=== PATIENT | male | born 1940 | race Caucasian/White ===

== ENCOUNTER 2024-12-04 08:29 | Outpatient (CLI) | payer MEDICARE, OTHER | END 2024-12-04 23:59 | disposition home or self-care (01) | LOC: VAS 08:29 | PROVIDERS: ATTEND Internal Medicine Critical Care Medicine | DX: N13.30 Unspecified hydronephrosis (principal); N18.4 Chronic kidney disease, stage 4 (severe) | CPT/HCPCS: 76770 ==

== ENCOUNTER 2024-12-04 11:50 | Emergency (ER) | payer MEDICARE, OTHER ==
[~2024-12-04] VITALS: Ht 177.8 cm; Wt 104.1 kg
[2024-12-04 11:54] VITALS: BP 176/79; PULSE 86; RESP 18; O2SAT 98
[2024-12-04 13:19] VITALS: TEMP 98.2
== END 2024-12-04 13:20 | disposition home or self-care (01) ==
LOC: ER 11:51
DX: R33.9 Retention of urine, unspecified (principal)
CPT/HCPCS: 51702; 51798; 99284; A4314; A4358; 76770

== ENCOUNTER 2024-12-16 12:53 | Inpatient (IN) | payer MEDICARE, OTHER ==
[~2024-12-16] VITALS: Ht 177.8 cm; Wt 101.0 kg
--- NOTE | 2024-12-16 16:27 | Physician Documentation ---
History of Present Illness ~ Chief Complaint: Catheter Problem Stated Complaint: CATHETER ISSUES Time Seen by MD: 15:49 HPI He was you year old male presents to the ED with a complaint of bloody urine. According to him he has had a Parra catheter placed proximally two weeks ago in his developed blood in his urine the last 2-3 days. Weeks ago patient developed urinary retention which required the initiation of the Parra catheter. This is likely secondary to the patient's chronic kidney disease. Day patient states he feels weak after losing so much blood through his Parra. Patient describes it as rafael blood. Day of Onset: Dec 16, 2024 Medication Reconciliation Allergies: Coded Allergies: No Known Allergies (Unverified , 12/16/24) Review of Systems All Other Systems at this time: Reviewed and Negative ROS As stated above in the HPI, otherwise all systems are reviewed and negative. Physical Exam Vital Signs: Temperature: 98.1, Heart Rate: 84, Respiratory Rate: 16, BP: 142/75, Pulse Oximetry: 99, Weight: 101.000 Oxygen Flow Rate: 0 Physical Exam Respiratory: Lungs clear, no respiratory distress. Cardiovascular: Regular rate and rhythm, no murmurs. Neurologic: Oriented x4. Psychiatric: Normal mood and affect. Skin: Normal color, warm and dry. No edema, no ecchymosis. Progress Results/Orders Results/Orders Orders - CHILO JACOME DOORPERSON Bladder Scan (12/16/24 ) Irrigation Of Bladder (12/16/24 ) * Continuous Bladder Irrigatio (12/16/24 17:24) Page Hospitalist (12/16/24 ) Ct Abdomen Pelvis (12/16/24 18:21) Completed Orders - CHILO JACOME DOORPERSON Cbc/Diff (12/16/24 16:57) BMP (12/16/24 16:57) Ct Abdomen Pelvis (12/16/24 18:21) Vital Signs 12/16/24 12/16/24 12/16/24 12:56 16:55 16:55 Temp 98.1 Pulse 84 89 Resp 16 18 18 B/P (MAP) 142/75 149/83 (105) Pulse Ox 99 96 O2 Flow Rate 0 0 Laboratory Tests Test 12/16/24 17:09 White Blood Count 6.4 Red Blood Count 3.26 L Hemoglobin 10.9 L Hematocrit 32.4 L Mean Corpuscular Volume 99.3 H Mean Corpuscular Hemoglobin 33.4 H Mean Corpuscular Hemoglobin Concent 33.6 Red Cell Distribution Width 14.9 H Platelet Count 178 Mean Platelet Volume 9.0 Neutrophils (%) (Auto) 68.8 Lymphocytes (%) (Auto) 19.2 L Monocytes (%) (Auto) 7.7 Eosinophils (%) (Auto) 3.7 Basophils (%) (Auto) 0.6 Neutrophils # (Auto) 4.4 Lymphocytes # (Auto) 1.2 Monocytes # (Auto) 0.5 Eosinophils # (Auto) 0.2 Basophils # (Auto) 0.0 CBC Comment Sodium Level 132 L Potassium Level 4.7 Chloride Level 99 Carbon Dioxide Level 19.3 L Anion Gap 14 Blood Urea Nitrogen 65 H Creatinine 3.17 H Estimated GFR/1.73 m2 19 BUN/Creatinine Ratio 20.5 H Glucose Level 131 H Calcium Level 8.9 Albumin 3.5 Chemistry Comments Medical Decision Making Findings This patient is nephrologists is Dr. Anderson who I consulted with. Explained to him the patient's current status and he indicated that he was nothing emergent that he needs to do however consulting with Urology is indicated .certainly, the patient needs to be admitted to the hospital. Urinary Diff Dx:Considerations: Include: AAA, Aortic dissection, Appendicitis, Appendicitis train, Bowel obstruction, Bladder outlet obstruc., Cholelithiasis, Choleangitis, Cholecystitis, DJD, Epididymitis, Hepatitis, HNP, Impaction, Musculoskeletal pain, Pancreatitis, Postoperative Comp., Prostatitis, Pyelonephritis, Renal failure, Renal infarction, Strain, Urolithiasis, Urinary Obstruction, Urethritis, Urinary retention, UTI, Other Departure Disposition: ADMITTED INPATIENT Admitted to Inpatient Unit: to hospitalist Impression: Primary Impression: Urine retention Additional Impression: Hematuria Referrals: NO PRIMARY CARE PROVIDER (PCP) Signature Scribe Signature: g Attestation: The note accurately reflects work and decisions made by me.Chilo Mitchell NP 12/16/24 18:30 CHILO JACOME NP Dec 16, 2024 16:27
[2024-12-16 17:24] LABS: ALBUMIN 3.5 G/DL (3.4-5.0); ANION GAP 14 (8-16); BLOOD UREA NITROGEN 65 MG/DL (7-18); BUN/CREATININE RATIO 20.5 (10.0-20.0); CALCIUM 8.9 MG/DL (8.5-10.1); CHLORIDE 99 MMOL/L (99-107); CREATININE 3.17 MG/DL (0.60-1.10); GLUCOSE 131 MG/DL (70-104); POTASSIUM 4.7 MMOL/L (3.5-5.1); SODIUM 132 MMOL/L (135-145); TOTAL CARBON DIOXIDE 19.3 MMOL/L (24-32); eCRCL 19 ML/MIN; eGFR 19 ML/MIN
[2024-12-16 17:38] LABS: BASOPHILS % (AUTO) 0.6 % (0-1); EOSINOPHILS # (AUTO) 0.2 X10'3 (0-0.9); EOSINOPHILS % (AUTO) 3.7 % (0-6); HEMATOCRIT 32.4 % (42.0-52.0); HEMOGLOBIN 10.9 g/dl (14.0-17.9); LYMPHOCYTES # (AUTO) 1.2 X10'3 (1.1-4.8); LYMPHOCYTES % (AUTO) 19.2 % (21-51); MEAN CORPUSCULAR HEMOGLOBIN 33.4 PG (27.0-31.0); MEAN CORPUSCULAR HGB CONC 33.6 g/dL (33.0-36.5); MEAN CORPUSCULAR VOLUME 99.3 FL (78-98); MONOCYTES # (AUTO) 0.5 X10'3 (0-0.9); MONOCYTES % (AUTO) 7.7 % (2-12); NEUTROPHILS # (AUTO) 4.4 X10'3 (1.8-7.7); NEUTROPHILS % (AUTO) 68.8 % (42-75); PLATELET COUNT 178 X10'3 (140-440); RED BLOOD COUNT 3.26 X10'6 (4.70-6.10); RED CELL DISTRIBUTION WIDTH 14.9 % (11.5-14.5); WHITE BLOOD COUNT 6.4 X10'3 (4.5-11.0)
[2024-12-16] MEDS ORDERED: HYDROcodone/acetaminophen 10/325mg tab PO PRN (18:25)
[2024-12-16] MEDS ORDERED: magnesium Cl slow-release 64mg tablet PO PRN (18:25)
[2024-12-16] MEDS ORDERED: magnesium hydroxide 30ml (MOM) UD suspension PO PRN (18:25)
[2024-12-16] MEDS ORDERED: acetaminophen 325mg tablet PO PRN ×2 (18:25)
[2024-12-16] MEDS ORDERED: morphine 2 MG/ML inj. syringe IV PRN ×2 (18:25)
[2024-12-16] MEDS ORDERED: potassium Cl 40MEQ/1/2NS 520ml 520 ML IV PRN (18:25)
[2024-12-16] MEDS ORDERED: magnesium sulf-water 4G/100mL 100 ML IV PRN (18:25)
[2024-12-16] MEDS ORDERED: ondansetron/PF 4mg/2ml inj IV PRN (18:25)
[2024-12-16] MEDS ORDERED: potassium Cl 20 mEq SR tablet PO PRN ×2 (18:25)
[2024-12-16] MEDS ORDERED: magnesium sulf-water 2g/50mL 50 ML IV PRN (18:25)
--- NOTE | 2024-12-16 18:38 | HISTORY AND PHYSICAL ---
History & Physical Providers to CC ~ chief complaint gross hematuria History of Present Illness Reason for Admit\Complaint: As above History of Present Illness This is an 84 year old male , with history of multiple medical problems including chronic kidney disease, colon cancer treated with surgery, colostomy status now, CHF ejection fraction unknown, bilateral hydronephrosis moderate, anemia hemoglobin 10.9, acute renal failure, Parra catheter malfunction, presented today to emergency department chief complaint gross hematuria associated with Parra catheter malfunction; in addition patient presents to the ED with a complaint of bloody urine. According to him he has had a Parra catheter placed proximally two weeks ago in his developed blood in his urine the last 2-3 days.Weeks ago patient developed urinary retention which required the initiation of the Parra catheter. This is likely secondary to the patient's chronic kidney disease.patient states he feels weak after losing so much blood through his Parra. Patient describes it as rfaael blood. Emergency department he was evaluated by medical provider was diagnosed with gross hematuria, malfunction normal Parra catheter, hyponatremia, acute renal failure, hydronephrosis, and decision was made to admit patient for further evaluation and treatment. No additional complaint or concern. Allergies: Coded Allergies: No Known Allergies (Unverified , 12/16/24) Active prescriptions Reviewed reconciled Home Medications Pending Past Medical History Past Medical History As in HPI Past Surgical History Surgical History Comment As in HPI Past Social History Social History Comment Deny illicit drug abuse tobacco alcohol use live with the family good social support Health Maintenance Health Maintenance Noncontributory ROS ROS Constitutional : no fever , no chills, or weakness. No diaphoresis. Allergic/Immunologic, no lymphadenopathy, no hives, no skin eruptions. Eyes, no recent visual changes, no eye pain, no photophobia. Ears, nose, mouth, throat, no sore throat, no nosebleed, no ear pain. Cardiovascular, no palpitations, skipped beats, chest pain, no peripheral edema, Respiratory, no dyspnea, orthopnea, cough, hemoptysis, chest wall pain. Gastrointestinal, no abdominal pain, nausea, vomiting, constipation or diarrhea. : no dysuria, positive for gross hematuria, no pelvic pain, urethral d/c. Endocrine, no polyuria, polydipsia, recent unintentional weight gain or loss. Hematologic/Lymphatic, no petechiae, no enlarged lymph nodes, no bone pain. Integumentary, no rash, no skin lesions, Musculoskeletal, no muscle aches, or pain, no muscle cramps, no recent change in gait Neurological, no dizziness, no headache, no syncope, no paresthesia. Psychiatric, no delusions, visual hallucinations, or hearing hallucinations. ROS - in rest is as in HPI. Exam Vitals: Vital Signs Date Time Temp Pulse Resp B/P (MAP) Pulse Ox O2 Delivery O2 Flow Rate FiO2 12/16/24 16:55 89 18 149/83 (105) 96 0 12/16/24 12:56 98.1 Vital signs, stable ,afebrile. Pulse Oximetry reflects adequate oxygenation. BMI is 31, weight 101 kg General: well developed, well nourished. Awake , alert, and oriented x4, resting comfortably in the bed, in no acute distress . Skin: Warm, dry, no pallor, no rash or petechiae. HEENT: Atraumatic, normocephalic, EOMI, anicteric sclera B; pink conjunctiva; PERRLA, normal oropharynx, moist oral and nasal mucosa. Tympanic membrane , nose , throat clear. Neck: Trachea midline. Supple, full range of motion, no JVD, bruit , hepatojugular reflex , lymphadenopathy or masses, or other lesions Cardiac: Regular rhythm, regular rate no murmurs, rubs, or gallops. Normal S1 and S2, no S3 noticed. PMI is normal. Respiratory: Equal breath sounds bilaterally, no tachypnea; lungs clear to auscultation bilaterally, no wheezing ,rub or rales, or crackles. Chest wall is symmetric and without deformity. No signs of trauma. Chest wall is nontender. No signs of respiratory distress. Resonance is normal upon percussion bilaterally. Gastrointestinal: Abdomen symmetric, non-distended, soft, non-tender, normal bowel sounds x4 quadrant, normoactive, no hepatosplenomegaly , no masses , no bruit, no flank pain bilaterally. No voluntary guarding, rebound, or rigidity. No tenderness to percussion. No pulsatile masses. Equal femoral pulses. No Gaytan's sign or McBurney point tenderness. Back; no CVA tenderness bilaterally, no deformities. Neck and back are without deformity as well. No tenderness noted on palpation of the spinous processes. Spinous processes are midline. Cervical, thoracic, and lumbar paraspinal muscles are not tender and are without spasm. : normal external genitalia, without lesions, swelling, masses or tenderness. Parra catheter in place rafael blood in the bag Musculoskeletal: Extremities, normal range of motion, non-tender, muscle strength 5/5 x 4. Negative Homans signs bilaterally on lower extremity. Distal pulses full symmetrical, no clubbing, cyanosis , edema. Neurological: Speech is clear, alert, and oriented x 4. No motor or sensory deficit, deep tendon reflexes normal, cerebellar intact. Cranial nerves II-XII intact. Psych: Alert and or appropriate, normal affect. Vascular: Good distal pulses, which are equal x4; capillary refill less than 2 seconds. Lymphatic, no lymphadenopathy. Diagnostic Data Last Recorded Lab Results: 12/16/24170812/16/24 170 Advance Care Planning Advanced Care plannin - 30 Minutes Additional Plan Assessment Chronic kidney disease Acute renal failure Bilateral hydronephrosis, moderate Gross hematuria Anemia hemoglobin 10.9 Hyponatremia Status post colon cancer surgery, colostomy status now Generalized weakness Chronic CHF ejection fraction unknown Plan Continuous bladder irrigation May need Urology doctor evaluation May need Nephrology doctor evaluation Correct electrolytes PT evaluation and treatment Additional lab work pending Echocardiography pending I reconciled home medications DVT gastropathy prophylaxis addressed Sepsis Screening Reassessment Date: Dec 16, 2024 Date of Service: Dec 16, 2024 Billing Provider: LUIS ALFREDO BULL MD Common Visit Codes: 68195-[id number] INP/OBS CARE (HIGH) Secondary Visit Codes: [id number] CARE PLAN ADDL 30MIN LUIS ALFREDO BULL MD Dec 16, 2024 18:38
--- NOTE | 2024-12-16 18:48 | RADIOLOGY REPORT ---
Exam: CT CT ABDOMEN PELVIS History: hematuria Comparison Study: None available at time of dictation. TECHNIQUE: Multidetector CT of the abdomen was performed from lung bases to pubic symphysis. Imaging was performed without IV contrast. Axial, coronal and sagittal multiplanar reformats were obtained fr om the axial data set by the technologist. Radiation Dose Information: CT Dose: CTDI volume is 28.75 mGy. Dose-length product is 1638.07 mGy*cm FINDINGS: Evaluation of solid organs is limited due to lack of intravenous contrast use. Findings: Lung Bases: No acute or significant lung base finding. Normal heart size. No pleural or pericardial effusion. Liver: The liver is normal in size. No focal lesions. Gallbladder and Biliary Tree: Small gallstones. Spleen: Unremarkable Pancreas: The pancreas is grossly normal in appearance. Adrenal Glands: Unremarkable Kidneys: Kidneys are grossly normal without calculi. Possible Mild right hydronephrosis. Bladder: Parra catheter in the bladder. Density of urine in the bladder is 26 may represent hemorrha gic urine. Bowel: The stomach is grossly normal in appearance. Small bowel and colon are normal in caliber and d istribution. The appendix is not visualized; however, no secondary findings of acute appendicitis id entified. Ascites: Absent Lymphadenopathy: No mesenteric, retroperitoneal or periportal lymphadenopathy. Abdominal Wall and Mesentery: Colostomy stoma lower left anterior abdominal wall. No findings to sugg est obstruction. Vasculature: The visualized abdominal aorta is normal in size and caliber. Evaluation of abdominal a nd pelvic vessels is limited due to lack of intravenous contrast. Pelvic Organs: Unremarkable Musculoskeletal: No aggressive focal bony lesions, acute fractures or dislocation. Soft tissues: Unremarkable IMPRESSION: 1. No nephrolithiasis or hydronephrosis. 2. Parra catheter in the bladder. 3. Tissue density of the urine appears to be 26 which may represent blood in the urine. 4. 8-9 mm calcification possibly in the distal right ureter. (coronal reconstructions ( series 601 im age 63 ; series 602 image 65; series 2 image 63) 5. Determination of wall thickness is not possible since the contents of the bladder obscure detail o f the wall. HS:Y Radiation optimization: All CT scans at this facility use at least one of these dose optimization kurt hniques: automated exposure control mA and/or kV adjustment per patient size (includes targeted exam s where dose is matched to clinical indication) or iterative reconstruction.
[2024-12-16 19:10] LABS: APTT 27 SECONDS (22-32); PROTHROMBIN TIME 10.3 SECONDS (9.0-12.0)
[2024-12-16 19:12] LABS: HEMOGLOBIN A1C 6.2 % (4.5-6.2)
[2024-12-16 19:18] LABS: MAGNESIUM 1.8 MG/DL (1.5-2.4); PHOSPHORUS 3.9 MG/DL (2.3-4.5); PRO BRAIN NATRIURETIC PEPTIDE 175 PG/ML (0-450)
[2024-12-16 19:26] LABS: OSMOLALITY 295 MOSM/K (280-300)
[2024-12-16] MEDS: K and/or MAG REPLACEMENT MC SCH (20:00)
[2024-12-16] MEDS: normal saline 1000ml 1,000 ML IV SCH (20:32)
[2024-12-16] MEDS: docusate sod 100mg capsule PO SCH (20:32)
[2024-12-16] MEDS ORDERED: temazepam 15mg capsule PO PRN (21:00)
[2024-12-16] MEDS ORDERED: DILT240T10 PO (22:21)
[2024-12-16] MEDS ORDERED: TAMS-55 (22:21)
[2024-12-16] MEDS ORDERED: LISI40TA13 PO (22:21)
[2024-12-16] MEDS ORDERED: DILT-35 PO (22:21)
[2024-12-16] MEDS ORDERED: DAPA10TA PO (22:21)
[2024-12-16] MEDS ORDERED: ATOR40TA72 PO (22:21)
[2024-12-16] MEDS ORDERED: FAMO20TA8 PO (22:21)
[2024-12-16 23:00] VITALS: BP 136/70; PULSE 71; RESP 14; TEMP 98.4; O2SAT 100
[2024-12-16 23:17] LABS: SODIUM,URINE RANDOM 33 MEQ/L
[2024-12-16 23:19] LABS: CLARITY,URINE BLOODY (Clear); COLOR,URINE RED (Yellow); UA COLLECTION TYPE NON-SPECIFIED
[2024-12-16 23:22] LABS: BACTERIA,URINE 1+ /HPF (Neg); RBC,URINE 50-100 /HPF (0-2); SQUAMOUS EPITHELIAL CELL,UR FEW /LPF (FEW)
[2024-12-16 23:23] LABS: WBC CLUMPS,URINE MODERATE /HPF (NEGATIVE)
[2024-12-16 23:25] LABS: OSMOLALITY UA 189 MOSM/K (50-1400)
[2024-12-17 01:00] LABS: BASOPHILS # (AUTO) 0.1 X10'3 (0-0.2); BASOPHILS % (AUTO) 0.9 % (0-1); EOSINOPHILS # (AUTO) 0.4 X10'3 (0-0.9); EOSINOPHILS % (AUTO) 6.6 % (0-6); HEMATOCRIT 29.3 % (42.0-52.0); HEMOGLOBIN 9.9 g/dl (14.0-17.9); LYMPHOCYTES # (AUTO) 1.3 X10'3 (1.1-4.8); LYMPHOCYTES % (AUTO) 22.3 % (21-51); MEAN CORPUSCULAR HEMOGLOBIN 33.5 PG (27.0-31.0); MEAN CORPUSCULAR HGB CONC 33.6 g/dL (33.0-36.5); MEAN CORPUSCULAR VOLUME 99.8 FL (78-98); MEAN PLATELET VOLUME 8.6 FL (7.4-10.4); MONOCYTES # (AUTO) 0.6 X10'3 (0-0.9); MONOCYTES % (AUTO) 10.4 % (2-12); NEUTROPHILS # (AUTO) 3.4 X10'3 (1.8-7.7); NEUTROPHILS % (AUTO) 59.8 % (42-75); PLATELET COUNT 144 X10'3 (140-440); RED BLOOD COUNT 2.94 X10'6 (4.70-6.10); RED CELL DISTRIBUTION WIDTH 14.9 % (11.5-14.5); WHITE BLOOD COUNT 5.7 X10'3 (4.5-11.0)
[2024-12-17 01:17] LABS: ALANINE AMINOTRANSFERASE 19 U/L (12-78); ALKALINE PHOSPHATASE 56 IU/L (46-116); ANION GAP 11 (8-16); ASPARTATE AMINO TRANSFERASE 10 U/L (10-37); BILIRUBIN,TOTAL 0.3 MG/DL (0.1-1.0); BLOOD UREA NITROGEN 65 MG/DL (7-18); BUN/CREATININE RATIO 21.5 (10.0-20.0); CALCIUM 8.7 MG/DL (8.5-10.1); CHLORIDE 104 MMOL/L (99-107); CHOL/HDL RATIO 1.7 (0.00-4.99); CHOLESTEROL 109 MG/DL (0-200); CREATININE 3.02 MG/DL (0.60-1.10); GLUCOSE 126 MG/DL (70-104); HDL CHOLESTEROL 63 MG/DL (35-60); LDL CHOLESTEROL 39 MG/DL (50-100); MAGNESIUM 1.8 MG/DL (1.5-2.4); POTASSIUM 4.3 MMOL/L (3.5-5.1); SODIUM 138 MMOL/L (135-145); TOTAL PROTEIN 6.1 G/DL (6.4-8.2); TRIGLYCERIDES 59 MG/DL (20-135); eCRCL 19 ML/MIN; eGFR 20 ML/MIN
[2024-12-17 06:00] VITALS: BP 127/62; PULSE 72; RESP 18; TEMP 98.3; O2SAT 99
[2024-12-17] MEDS: pantoprazole 40mg Tablet.DR PO SCH (07:34)
[2024-12-17 08:00] VITALS: RESP 16; O2SAT 98
[2024-12-17 10:00] VITALS: BP 157/79; PULSE 76; RESP 16; TEMP 97.9; O2SAT 99
--- NOTE | 2024-12-17 13:37 | CARDIOLOGY REPORT ---
APPROVED REPORT EXAM: Comprehensive 2D, Doppler, and color-flow Echocardiogram. Patient Location: 4[address] Blood Pressure: 127/62 mmHg Heart Rate: 84 bpm Rhythm: SINUS W/1st DEGREE BLOCK Indications CONGESTIVE HEART FAILURE ACUTE RENAL FAILURE Apple Picking Supervisor: Douglas Solis MD Previous echo: 08/08/24 [facility] (EF 70%, trace TR, trace MR) 2D Dimensions RVDd 4.1 cm IVSd 1.2 (0.7-1.1cm) LVDd 2.8 cm PWd 1.5 (0.7-1.1cm) IVSs 2.0 (0.8-1.2cm) LVDs 1.7 (2.5-4.0cm) PWs 1.8 (0.8-1.2cm) LVOT Diameter 2.09 (1.8-2.4cm) LVEF(%) 72.3 (>50%) FS (%) 39.8 % SV 21.6 ml CO 1.8 L/min M-Mode Dimensions Left Atrium(MM) 4.00 (2.5-4.0cm) Aortic Root 3.35 (2.2-3.7cm) Aortic Cusp Exc 1.91 (1.5-2.0cm) Aortic Valve AoV Peak Skip. 181.1 cm/s AoV VTI 29.9 cm AO Peak GR. 13.1 mmHg AO Mean GR. 7 mmHg LVOT VTI 19.00 cm LVOT Peak Skip. 134.5 cm/s GALA(VTI)/BSA 2.18 cm2/m2 GALA (VTI) 2.18 cm2 Mitral Valve MV E Velocity 188.5 cm/s MV Peak Gr. 15 mmHg MV PHT 34 ms MVA (PHT) 6.47 cm2 MV [id number] cm/s Tricuspid Valve TR P. Velocity 193 cm/s RAP ESTIMATE 10 mmHg TR Peak Gr. 15 mmHg RVSP 25 mmHg LEFT VENTRICLE Hypovolemic LV size and hyperdynamic function. Mild concentric hypertrophy. LVEF is 75-80%. RIGHT VENTRICLE RV is moderately dilated in size with mildly reduced function. ATRIA Left atrium is mildly dilated. AORTIC VALVE Trileaflet AV appears mildly sclerotic without stenosis or insufficiency. MITRAL VALVE Mild MV annular calcification without stenosis. Trace regurgitation. TRICUSPID VALVE TV appears structurally normal with trace regurgitation. PULMONIC VALVE Normal PV without stenosis, physiologic insufficiency. GREAT VESSELS Aortic root is normal in size. Ascending aorta is normal in size. PERICARDIUM Normal pericardium. No effusion. Other Information Study Quality: Adequate, but difficult due to body habitus and low volume state. Conclusion Hypovolemic LV size and hyperdynamic function. Mild concentric hypertrophy. LVEF is 75-80%. RV is moderately dilated in size with mildly reduced function. Left atrium is mildly dilated. Trileaflet AV appears mildly sclerotic without stenosis or insufficiency. Mild MV annular calcification without stenosis. Trace regurgitation. TV appears structurally normal with trace regurgitation. Normal pericardium. No effusion.
[2024-12-17] MEDS: CefTRIAXone 2gm/D5W 50ml BAG 50 ML IV SCH (16:22)
[2024-12-17 18:00] VITALS: BP 137/77; PULSE 85; RESP 14; TEMP 97.7; O2SAT 99
--- NOTE | 2024-12-17 19:08 | PROGRESS NOTE ---
Daily Progress Note Providers to CC ~ Antibiotic Timeout Antibiotic Ordered?: Yes Subjective Patient was seen in his room he mentioned that he had Parra catheter placed two weeks back because of urinary retention but this Tuesday he noticed the blood in the urine which got more worse by Tuesday so he came to ER for further management. Case discussed with Urology specialist Dr. Hinton who recommended to start the patient on antibiotics and to continue bladder irrigation and if hematuria is not clearing to contact him again in a.m.. Home medication reconciliation done for patient's home medication. As per patient he has bipolar disorder and he needs his psychiatric medications as prescribed otherwise he gets very anxious. Objective Vital Signs Date Time Temp Pulse Resp B/P (MAP) Pulse Ox O2 Delivery O2 Flow Rate FiO2 12/17/24 10:00 97.9 76 16 157/79 (105) 99 Room Air 12/16/24 21:39 0 Result Diagram: 12/17/24 0045 12/17/24 0045 General-patient not in any acute distress, alert awake oriented, chronically ill-appearing HEENT-atraumatic normocephalic, neck supple without elevated JVD, no thyromegaly or carotid bruit. No lymphadenopathy bilaterally. Eyes-no icterus or pallor seen in eyes Chest-clear to auscultation bilaterally, breathing nonlabored no tachypnea, no wheezing, no crepitation, no crackles. Heart-S1-S2 normal, regular heart rate no murmur Abdomen bowel sounds positive on auscultation, soft nondistended nontender no guarding, no rigidity, colostomy bag present over left side of abdomen genital exam- Parra catheter in place draining blood in urine Skin no active skin rash Neurology-grossly intact, nonfocal alert awake oriented Extremity- no pedal edema able to move all 4 extremities Psychiatry - patient is not confused or agitated cooperated during physical examination Coagulation Studies Laboratory Tests Test 12/16/24 17:09 Prothrombin Time 10.3 SECONDS (9.0-12.0) INR International Normalized Ratio 1.0 INR Activated Partial Thromboplast Time 27 SECONDS (22-32) Coagulation Comments Problem\Assessment\Plan This is an 84 year old male , with history of multiple medical problems including chronic kidney disease, colon cancer treated with surgery, colostomy status now, CHF ejection fraction unknown, bilateral hydronephrosis moderate, anemia hemoglobin 10.9, acute renal failure, Parra catheter malfunction, presented today to emergency department chief complaint gross hematuria associated with Parra catheter malfunction; in addition patient presents to the ED with a complaint of bloody urine. # Chronic kidney disease- patient follows with Dr. Anderson who is patient's regular Nephrology specialist in outpatient setting. Renal function more or less unchanged # Gross hematuria, Mild right hydronephrosis- Case discussed with Urology specialist Dr. Hinton who recommended to start the patient on antibiotics and to continue bladder irrigation and if hematuria is not clearing to contact him again in a.m.. Continuous bladder irrigation to continue # Anemia hemoglobin 10.9- we will monitor hemoglobin and hematocrit of # Hyponatremia- resolved , on normal saline 100 mL/hour # Status post colon cancer surgery done long time back, colostomy status now # Generalized weakness secondary to gross hematuria # Chronic CHF ejection fraction unknown- I reconciled home medications # DVT gastropathy prophylaxis addressed Patient's current condition is guarded we will continue to follow patient in AM Date of Service: Dec 17, 2024 Billing Provider: SELINA CARDENAS MD Common Visit Codes: [id number] INP/OBS CARE(HIGH) SELINA CARDENAS MD Dec 17, 2024 19:08
[2024-12-17 20:00] VITALS: RESP 16; O2SAT 98
[2024-12-17 20:27] LABS: HEMATOCRIT 29.3 % (42.0-52.0); HEMOGLOBIN 9.9 g/dl (14.0-17.9); MEAN CORPUSCULAR HEMOGLOBIN 33.7 PG (27.0-31.0); MEAN CORPUSCULAR HGB CONC 33.8 g/dL (33.0-36.5); MEAN CORPUSCULAR VOLUME 99.4 FL (78-98); MEAN PLATELET VOLUME 8.6 FL (7.4-10.4); PLATELET COUNT 164 X10'3 (140-440); RED BLOOD COUNT 2.95 X10'6 (4.70-6.10); RED CELL DISTRIBUTION WIDTH 14.6 % (11.5-14.5); WHITE BLOOD COUNT 6.6 X10'3 (4.5-11.0)
[2024-12-17 20:48] LABS: OCCULT BLOOD STOOL NEGATIVE (Neg)
[2024-12-17] MEDS: tamsulosin 0.4mg capsule PO SCH (21:06)
[2024-12-17 22:00] VITALS: BP 140/81; PULSE 97; RESP 16; TEMP 98.1; O2SAT 99
[2024-12-18 04:19] LABS: BASOPHILS % (AUTO) 0.5 % (0-1); EOSINOPHILS # (AUTO) 0.3 X10'3 (0-0.9); EOSINOPHILS % (AUTO) 5.5 % (0-6); HEMATOCRIT 27.2 % (42.0-52.0); HEMOGLOBIN 9.2 g/dl (14.0-17.9); LYMPHOCYTES % (AUTO) 18.5 % (21-51); MEAN CORPUSCULAR HGB CONC 33.9 g/dL (33.0-36.5); MEAN CORPUSCULAR VOLUME 100.3 FL (78-98); MONOCYTES # (AUTO) 0.5 X10'3 (0-0.9); MONOCYTES % (AUTO) 8.3 % (2-12); NEUTROPHILS # (AUTO) 3.7 X10'3 (1.8-7.7); NEUTROPHILS % (AUTO) 67.2 % (42-75); PLATELET COUNT 151 X10'3 (140-440); RED BLOOD COUNT 2.71 X10'6 (4.70-6.10); RED CELL DISTRIBUTION WIDTH 14.8 % (11.5-14.5); WHITE BLOOD COUNT 5.5 X10'3 (4.5-11.0)
[2024-12-18 04:31] LABS: ALANINE AMINOTRANSFERASE 15 U/L (12-78); ALBUMIN 2.7 G/DL (3.4-5.0); ALBUMIN/GLOBULIN RATIO 0.9 (1.1-1.5); ALKALINE PHOSPHATASE 54 IU/L (46-116); ANION GAP 9 (8-16); ASPARTATE AMINO TRANSFERASE 12 U/L (10-37); BILIRUBIN,TOTAL 0.2 MG/DL (0.1-1.0); BLOOD UREA NITROGEN 53 MG/DL (7-18); BUN/CREATININE RATIO 19.6 (10.0-20.0); CALCIUM 8.5 MG/DL (8.5-10.1); CHLORIDE 110 MMOL/L (99-107); CREATININE 2.71 MG/DL (0.60-1.10); GLUCOSE 125 MG/DL (70-104); MAGNESIUM 1.8 MG/DL (1.5-2.4); POTASSIUM 4.8 MMOL/L (3.5-5.1); SODIUM 140 MMOL/L (135-145); TOTAL PROTEIN 5.7 G/DL (6.4-8.2); eCRCL 22 ML/MIN; eGFR 23 ML/MIN
[2024-12-18 06:00] VITALS: BP 135/80; PULSE 90; PULSE 97; RESP 16; RESP 18; TEMP 98.6; O2SAT 97; O2SAT 99
[2024-12-18 08:00] VITALS: RESP 18; O2SAT 99
[2024-12-18] MEDS: famotidine 20mg tablet PO SCH (08:00)
[2024-12-18] MEDS: diltiazem CD 120mg capsule (once-daily) PO SCH (08:22)
[2024-12-18] MEDS: DAPAGLIFLOZIN 10MG TABLET PO SCH (08:23)
[2024-12-18] MEDS: atorvastatin 20mg tablet PO SCH (08:24)
[2024-12-18] MEDS: lisinopril 20mg tablet PO SCH (08:27)
[2024-12-18 10:00] VITALS: BP 108/76; PULSE 90; RESP 17; TEMP 98.1; O2SAT 98
--- NOTE | 2024-12-18 15:29 | CONSULTATION REPORT ---
History of Present Illness Providers to CC ~ Reason for Admit\Admit Dx: Hematuria History of Present Illness 84 YOM with retention since December 04. PMH includes chronic kidney disease, colon cancer, colostomy status, and CHF. Presented yesterday with gross hematuria and clots. Urine cultures obtained on presentation are already demonstrating Gram-negative rods but this is likely contaminant obtained from his urinary drainage bag. The patient has since been started on antibiotics. Since admission the patient's hemoglobin has been relatively stable over the past 24 hours and has decreased only slightly. Currently the patient's urine was draining dark red. I hand evacuated a large amount of clot through this catheter after which his irrigant appeared a light pink color. Allergies: Coded Allergies: No Known Allergies (Unverified , 12/16/24) Home Medications Home Medications Active Reported Famotidine 20 Mg Tablet 1 Tab PO DAILY Lisinopril* (Lisinopril) 40 Mg Tablet 1 Tab PO DAILY Flomax* (Tamsulosin HCl) 0.4 Mg Cap.sr.24h Diltiazem 24Hr ER (Diltiazem HCl) 120 Mg Cap.er.24h 1 Cap PO DAILY Farxiga (Dapagliflozin Propanediol) 10 Mg Tablet 1 Tab PO DAILY Matzim LA (Diltiazem HCl) 240 Mg Tab.er.24h 1 Tab PO DAILY Atorvastatin Calcium 40 Mg Tablet 1 Tab PO DAILY Past Surgical History Surgical History Comment No genitourinary history Past Family History Family History Comment Noncontributory Family History: FH: skin cancer Past Social History Social History Comment Noncontributory Physical Exam Last Vital Signs Recorded: RN Vital Signs have been reviewed: Yes, Temperature: 98.1, Source: Oral, Heart Rate: 90, Respiratory Rate: 17, BP: 108/76, Pulse Oximetry: 98, Weight: 101.000 General Appearance: alert, no apparent distress EENT: PERRL/EOMI Neck: normal inspection Respiratory: no respiratory distress Chest: no accessory muscle use Cardiovascular: regular rate, rhythm Gastrointestinal: non-tender Genitalia: normal Rectal: deferred Back: no CVA tenderness Extremities: normal range of motion, no edema Neurologic: oriented x4 Psychiatric: normal mood/affect Skin: normal color, warm/dry Lymphatic: no adenopathy Review of Systems ROS ROS Comments: Normal 10 system review Results Diagram Lab Result Diagram: 12/18/24 0336 12/18/24 0336 Assessment/Plan Problems/Diagnosis: (1) Hematuria Assessment & Plan: The patient is hematuria is likely due to a urinary tract infection versus catheter related trauma. Continue CBI. With treatment of his infection the hematuria should resolve. Should his hematuria fail to resolve and hemoglobin continued to drift from will consider intervention. JOSS TREVINO MD Dec 18, 2024 15:29
[2024-12-18 18:00] VITALS: BP 123/72; PULSE 79; RESP 16; TEMP 98.1; O2SAT 99
[2024-12-18 19:00] VITALS: RESP 18; O2SAT 99
--- NOTE | 2024-12-18 20:00 | PROGRESS NOTE ---
Daily Progress Note Providers to CC ~ Antibiotic Timeout Antibiotic Ordered?: Yes Subjective Patient was sitting on reclining chair he is still having blood in urine. I contacted Dr. Hinton again and who has evaluated the patient today bedside. Objective Vital Signs Date Time Temp Pulse Resp B/P (MAP) Pulse Ox O2 Delivery O2 Flow Rate FiO2 12/18/24 18:00 98.1 79 16 123/72 (89) 99 12/18/24 10:00 Room Air 12/18/24 08:00 0.0 Result Diagram: 12/18/24 0336 12/18/24 0336 General-patient not in any acute distress, alert awake oriented, chronically ill-appearing HEENT-atraumatic normocephalic, neck supple without elevated JVD, no thyromegaly or carotid bruit. No lymphadenopathy bilaterally. Eyes-no icterus or pallor seen in eyes Chest-clear to auscultation bilaterally, breathing nonlabored no tachypnea, no wheezing, no crepitation, no crackles. Heart-S1-S2 normal, regular heart rate no murmur Abdomen bowel sounds positive on auscultation, soft nondistended nontender no guarding, no rigidity, colostomy bag present over left side of abdomen genital exam- Parra catheter in place draining blood in urine Skin no active skin rash Neurology-grossly intact, nonfocal alert awake oriented Extremity- no pedal edema able to move all 4 extremities Psychiatry - patient is not confused or agitated cooperated during physical examination Coagulation Studies Laboratory Tests Test 12/16/24 17:09 Prothrombin Time 10.3 SECONDS (9.0-12.0) INR International Normalized Ratio 1.0 INR Activated Partial Thromboplast Time 27 SECONDS (22-32) Coagulation Comments Problem\\Assessment\\Plan This is an 84 year old male , with history of multiple medical problems including chronic kidney disease, colon cancer treated with surgery, colostomy status now, CHF ejection fraction unknown, bilateral hydronephrosis moderate, anemia hemoglobin 10.9, acute renal failure, Parra catheter malfunction, presented today to emergency department chief complaint gross hematuria associated with Parra catheter malfunction; in addition patient presents to the ED with a complaint of bloody urine. # Chronic kidney disease- patient follows with Dr. Anderson who is patient's regular Nephrology specialist in outpatient setting. Renal function improving . # Gross hematuria, Mild right hydronephrosis- Case discussed with Urology specialist Dr. Hinton who recommended to start the patient on antibiotics and to continue bladder irrigation and if hematuria is not clearing to contact him again in a.m.. Continuous bladder irrigation to continue . Dr. Hinton evaluated the patient today as per urology specialist The patient is hematuria is likely due to a urinary tract infection versus catheter related trauma. Continue CBI. With treatment of his infection the hematuria should resolve. Should his hematuria fail to resolve and hemoglobin continued to drift from will consider intervention." # Anemia - we will monitor hemoglobin and hematocrit # Hyponatremia- resolved , on normal saline 100 mL/hour # Status post colon cancer surgery done long time back, colostomy status now # Generalized weakness secondary to gross hematuria # Chronic CHF ejection fraction unknown- I reconciled home medications # DVT gastropathy prophylaxis addressed Patient's current condition is guarded we will continue to follow patient in AM Date of Service: Dec 18, 2024 Billing Provider: SELINA CARDENAS MD Common Visit Codes: [id number] INP/OBS CARE(HIGH) SELINA CARDENAS MD Dec 18, 2024 20:00
[2024-12-18 22:00] VITALS: BP 160/81; PULSE 91; RESP 18; TEMP 98.5; O2SAT 99
[2024-12-19 04:45] LABS: BASOPHILS % (AUTO) 0.8 % (0-1); EOSINOPHILS # (AUTO) 0.5 X10'3 (0-0.9); EOSINOPHILS % (AUTO) 9.8 % (0-6); HEMATOCRIT 24.7 % (42.0-52.0); HEMOGLOBIN 8.3 g/dl (14.0-17.9); LYMPHOCYTES # (AUTO) 1.3 X10'3 (1.1-4.8); LYMPHOCYTES % (AUTO) 23.5 % (21-51); MEAN CORPUSCULAR HEMOGLOBIN 33.7 PG (27.0-31.0); MEAN CORPUSCULAR HGB CONC 33.5 g/dL (33.0-36.5); MEAN CORPUSCULAR VOLUME 100.5 FL (78-98); MEAN PLATELET VOLUME 8.6 FL (7.4-10.4); MONOCYTES # (AUTO) 0.4 X10'3 (0-0.9); MONOCYTES % (AUTO) 7.5 % (2-12); NEUTROPHILS # (AUTO) 3.1 X10'3 (1.8-7.7); NEUTROPHILS % (AUTO) 58.4 % (42-75); PLATELET COUNT 143 X10'3 (140-440); RED BLOOD COUNT 2.46 X10'6 (4.70-6.10); RED CELL DISTRIBUTION WIDTH 15.1 % (11.5-14.5); WHITE BLOOD COUNT 5.4 X10'3 (4.5-11.0)
[2024-12-19 05:26] LABS: ALANINE AMINOTRANSFERASE 16 U/L (12-78); ALBUMIN 2.6 G/DL (3.4-5.0); ALBUMIN/GLOBULIN RATIO 0.9 (1.1-1.5); ALKALINE PHOSPHATASE 50 IU/L (46-116); ANION GAP 9 (8-16); ASPARTATE AMINO TRANSFERASE 12 U/L (10-37); BILIRUBIN,TOTAL 0.2 MG/DL (0.1-1.0); BLOOD UREA NITROGEN 47 MG/DL (7-18); BUN/CREATININE RATIO 19.6 (10.0-20.0); CALCIUM 8.5 MG/DL (8.5-10.1); CHLORIDE 111 MMOL/L (99-107); GLUCOSE 119 MG/DL (70-104); MAGNESIUM 1.7 MG/DL (1.5-2.4); SODIUM 141 MMOL/L (135-145); TOTAL CARBON DIOXIDE 21.3 MMOL/L (24-32); TOTAL PROTEIN 5.4 G/DL (6.4-8.2); eCRCL 25 ML/MIN; eGFR 26 ML/MIN
[2024-12-19 06:00] VITALS: BP 137/72; PULSE 89; RESP 15; TEMP 97.5; O2SAT 97
[2024-12-19 07:00] VITALS: BP 136/65; PULSE 99
[2024-12-19 10:00] VITALS: BP 110/68; PULSE 69; RESP 16; TEMP 97; O2SAT 98
--- NOTE | 2024-12-19 14:31 | PROGRESS NOTE ---
Progress Note Ortho Follow Up Progress Note The patient continues to demonstrate gross hematuria with clot passage. Furthermore his hemoglobin has decreased to 8.3. Hand irrigation today yielded additional clots. Insect with ROS ROS No new complaints Exam Exam: Alert and Oreinted x4, Appropriate, Vital signs are stable, In no acute distress (This was), Calves: soft bilaterally (.), Calves: non-tender bilat, ABD Soft NT Exam Comments Catheter drainage was a dark red following irrigation however many clots were cleared in his irrigation was seen to be a light pink. Problem/Assessment/Plan Problems/Diagnosis: (1) Hematuria Additional Plan The patient has gross hematuria persists. Furthermore his hemoglobin has dropped yet once more. For these reasons I suggested we go to the operating room for cystoscopy, clot evacuation, and fulguration of bleeding. I discussed this procedure in detail along with the risks and benefits associated with such and the patient agreed to proceed with surgery. Results/Orders Result Diagram: 12/19/24 0410 12/19/24 0410 JOSS TREVINO MD Dec 19, 2024 14:31
[2024-12-19 18:00] VITALS: BP 137/77; PULSE 66; RESP 18; TEMP 97; O2SAT 100
[2024-12-19 20:00] VITALS: RESP 18; O2SAT 100
--- NOTE | 2024-12-19 21:09 | PROGRESS NOTE ---
Daily Progress Note Providers to CC ~ Antibiotic Timeout Antibiotic Ordered?: Yes Subjective Patient was seen in his room still he is having bleeding in his stool. Dr. Hinton mentioned that he will do cauterization procedure in a.m. for hematuria Objective Vital Signs Date Time Temp Pulse Resp B/P (MAP) Pulse Ox O2 Delivery O2 Flow Rate FiO2 12/19/24 10:00 97.0 69 16 110/68 (82) 98 Room Air 12/19/24 08:00 0.0 Result Diagram: 12/19/2440912/19/24409 General-patient not in any acute distress, alert awake oriented, chronically ill-appearing HEENT-atraumatic normocephalic, neck supple without elevated JVD, no thyromegaly or carotid bruit. No lymphadenopathy bilaterally. Eyes-no icterus or pallor seen in eyes Chest-clear to auscultation bilaterally, breathing nonlabored no tachypnea, no wheezing, no crepitation, no crackles. Heart-S1-S2 normal, regular heart rate no murmur Abdomen bowel sounds positive on auscultation, soft nondistended nontender no guarding, no rigidity, colostomy bag present over left side of abdomen genital exam- Parra catheter in place draining blood in urine Skin no active skin rash Neurology-grossly intact, nonfocal alert awake oriented Extremity- no pedal edema able to move all 4 extremities Psychiatry - patient is not confused or agitated cooperated during physical examination Coagulation Studies Laboratory Tests Test 12/16/24 17:09 Prothrombin Time 10.3 SECONDS (9.0-12.0) INR International Normalized Ratio 1.0 INR Activated Partial Thromboplast Time 27 SECONDS (22-32) Coagulation Comments Problem\\Assessment\\Plan This is an 84 year old male , with history of multiple medical problems including chronic kidney disease, colon cancer treated with surgery, colostomy status now, CHF ejection fraction unknown, bilateral hydronephrosis moderate, anemia hemoglobin 10.9, acute renal failure, Parra catheter malfunction, presented today to emergency department chief complaint gross hematuria associated with Parra catheter malfunction; in addition patient presents to the ED with a complaint of bloody urine. # Chronic kidney disease- patient follows with Dr. Anderson who is patient's regular Nephrology specialist in outpatient setting. Renal function improving . # Gross hematuria, Mild right hydronephrosis- Case discussed with Urology specialist Dr. Hinton who recommended to start the patient on antibiotics and to continue bladder irrigation and if hematuria is not clearing to contact him again in a.m.. Continuous bladder irrigation to continue . Dr. Hinton evaluated the patient today as per urology specialist The patient is hematuria is likely due to a urinary tract infection versus catheter related trauma. Continue CBI. With treatment of his infection the hematuria should resolve. Should his hematuria fail to resolve and hemoglobin continued to drift from will consider intervention." # Anemia - we will monitor hemoglobin and hematocrit # Hyponatremia- resolved , on normal saline 100 mL/hour # Status post colon cancer surgery done long time back, colostomy status now # Generalized weakness secondary to gross hematuria # Chronic CHF ejection fraction unknown- I reconciled home medications # DVT gastropathy prophylaxis addressed Patient's current condition is guarded we will continue to follow patient in AM Date of Service: Dec 19, 2024 Billing Provider: SELINA CARDENAS MD Common Visit Codes: [id number] INP/OBS CARE(HIGH) SELINA CARDENAS MD Dec 19, 2024 21:09
[2024-12-19 22:00] VITALS: BP 120/60; PULSE 67; RESP 16; TEMP 98; O2SAT 98
[2024-12-20] VITALS (20 sets, daily range): BP systolic 103–136; BP diastolic 47–99; PULSE 83–116; RESP 12–20; TEMP 97.8–97.9; O2SAT 94–100
[2024-12-20 06:27] LABS: BASOPHILS % (AUTO) 0.8 % (0-1); EOSINOPHILS # (AUTO) 0.5 X10'3 (0-0.9); HEMATOCRIT 22.7 % (42.0-52.0); HEMOGLOBIN 7.7 g/dl (14.0-17.9); LYMPHOCYTES # (AUTO) 1.1 X10'3 (1.1-4.8); LYMPHOCYTES % (AUTO) 20.4 % (21-51); MEAN CORPUSCULAR HEMOGLOBIN 34.1 PG (27.0-31.0); MEAN CORPUSCULAR VOLUME 100.2 FL (78-98); MEAN PLATELET VOLUME 8.9 FL (7.4-10.4); MONOCYTES # (AUTO) 0.3 X10'3 (0-0.9); MONOCYTES % (AUTO) 6.5 % (2-12); NEUTROPHILS # (AUTO) 3.3 X10'3 (1.8-7.7); NEUTROPHILS % (AUTO) 63.3 % (42-75); PLATELET COUNT 144 X10'3 (140-440); RED BLOOD COUNT 2.26 X10'6 (4.70-6.10); RED CELL DISTRIBUTION WIDTH 14.7 % (11.5-14.5); WHITE BLOOD COUNT 5.2 X10'3 (4.5-11.0)
[2024-12-20 06:36] LABS: ALANINE AMINOTRANSFERASE 12 U/L (12-78); ALBUMIN 2.6 G/DL (3.4-5.0); ALBUMIN/GLOBULIN RATIO 0.9 (1.1-1.5); ALKALINE PHOSPHATASE 50 IU/L (46-116); ANION GAP 7 (8-16); ASPARTATE AMINO TRANSFERASE 2 U/L (10-37); BILIRUBIN,TOTAL 0.2 MG/DL (0.1-1.0); BLOOD UREA NITROGEN 40 MG/DL (7-18); BUN/CREATININE RATIO 18.2 (10.0-20.0); CALCIUM 8.7 MG/DL (8.5-10.1); CHLORIDE 113 MMOL/L (99-107); GLUCOSE 117 MG/DL (70-104); MAGNESIUM 1.7 MG/DL (1.5-2.4); POTASSIUM 5.1 MMOL/L (3.5-5.1); SODIUM 142 MMOL/L (135-145); TOTAL CARBON DIOXIDE 21.6 MMOL/L (24-32); TOTAL PROTEIN 5.4 G/DL (6.4-8.2); eCRCL 27 ML/MIN; eGFR 29 ML/MIN
[2024-12-20] MEDS: famotidine 20mg tablet PO SCH (08:30)
[2024-12-20] MEDS ORDERED: enalaprilat 1.25mg/ml 2ml vial IV PRN (11:50)
[2024-12-20] MEDS ORDERED: morphine 2 MG/ML inj. syringe IV PRN ×2 (11:50→15:05)
[2024-12-20] MEDS ORDERED: proCHLORperazine 10 MG/2 ml inj IV PRN ×2 (11:50→15:05)
[2024-12-20] MEDS ORDERED: ondansetron/PF 4mg/2ml inj IV PRN ×2 (11:50→15:05)
[2024-12-20] MEDS ORDERED: meperidine/PF 25mg/ml syringe IV PRN ×4 (11:50→15:05)
[2024-12-20] MEDS ORDERED: labetalol 20mg/4ml (5mg/ml) syringe IV PRN ×2 (11:50→15:05)
[2024-12-20] MEDS: ringers solution, lacted 1,000 ML IV SCH ×2 (11:50→15:05)
[2024-12-20] MEDS ORDERED: morphine 4 MG/ML inj SYRINge IV PRN ×2 (11:50→15:05)
[2024-12-20] MEDS ORDERED: fentaNYL/PF 50MCG/1 ML 2ML syringe ONE ×2 (12:41→15:33)
[2024-12-20] MEDS ORDERED: midazolam 1 mg/ML 2ml injection ONE ×2 (12:41→15:54)
--- NOTE | 2024-12-20 13:22 | ELECTROCARDIOGRAPH REPORT ---
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 ROMAN Carpio Measurements Intervals [place] Rate: 87 P: 73 [place]: 247 QRS: -9 QRSD: 139 T: 123 QT: 405 QTc: 488 Interpretive Statements Sinus rhythm Prolonged [place] interval Left bundle branch block Electronically Signed On 12-20-2024 17:13:[address] ROMAN Carpio Please click the below link to view image of tracing.
[2024-12-20] MEDS ORDERED: hydrALAZINE 20mg/ml inj. IV PRN (15:05)
[2024-12-20] MEDS ORDERED: HYDROmorphone/PF 0.2 MG/ML SYRINGE IV PRN ×2 (15:05)
[2024-12-20] MEDS ORDERED: meperidine/PF 100mg/ml syringe IV PRN (15:07)
[2024-12-20] MEDS ORDERED: sevoflurane 250ml liquid IH ONE (15:26)
[2024-12-20] MEDS ORDERED: ondansetron/PF 4mg/2ml inj ONE (15:54)
[2024-12-20] MEDS ORDERED: dexamethasone sod phosphate 4mg/ml inj. ONE (15:54)
[2024-12-20] MEDS ORDERED: 0.9 % SODIUM CHLORIDE 10 ML VIAL ONE (15:54)
[2024-12-20] MEDS ORDERED: ePHEDrine 50MG/ML INJ. ONE (15:54)
--- NOTE | 2024-12-20 15:54 | PROGRESS NOTE ---
Daily Progress Note Providers to CC ~ Antibiotic Timeout Antibiotic Ordered?: Yes If Yes, Indications: UTI Subjective No acute events overnight. Patient examined at bedside. No new complaints, not in acute distress. Patient denies chest pain, sob, palpitations, abdominal pain, n/v/d. Vss, labs notable for further downtrend of Hgb to 7.7 g/dL, improving renal function. OR today for cystoscopy, clot evacuation, and fulguration of bleeding. Urine culture resulted positive for E. coli, sensitive to ceftriaxone. Objective Vital Signs Date Time Temp Pulse Resp B/P (MAP) Pulse Ox O2 Delivery O2 Flow Rate FiO2 12/20/24 08:31 67 12/20/24 08:00 Room Air 12/20/24 07:33 97.9 14 113/66 (82) 99 12/19/24 20:00 0.0 Result Diagram: 12/20/24 0528 12/20/24527 Physical Exam General: Generalized weakness, A&Ox 2, NAD HEENT: Normocephalic, PERRLA Neck: Supple, trachea midline, no JVD Chest: Clear to auscultation bilaterally Cardiovascular: RRR, S1&S2 GI: Soft and nontender Extremities: No cyanosis/clubbing/or edema CLIENT RESOLUTION SPECIALIST: No focal deficits Musculoskeletal: No paraspinal muscle tenderness, no muscle spasm Skin: Warm and intact Coagulation Studies Laboratory Tests Test 12/16/24 17:09 Prothrombin Time 10.3 SECONDS (9.0-12.0) INR International Normalized Ratio 1.0 INR Activated Partial Thromboplast Time 27 SECONDS (22-32) Coagulation Comments Problem\Assessment\Plan This is an 84 year old male , with history of multiple medical problems including chronic kidney disease, colon cancer treated with surgery, colostomy status now, CHF ejection fraction unknown, bilateral hydronephrosis moderate, anemia hemoglobin 10.9, acute renal failure, Parra catheter malfunction, presented today to emergency department chief complaint gross hematuria associated with Parra catheter malfunction; in addition patient presents to the ED with a complaint of bloody urine. # Mild right hydronephrosis # UTI # Chronic indwelling status -gross hematuria; case discussed with urologist Dr. Hinton who recommended to start the patient on antibiotics and CBI -12/20: OR today for cystoscopy, clot evacuation, and fulguration of bleeding # Prerenal HÉCTOR on CKD, unknown stage -patient follows with Dr. Anderson who is patient's regular Nephrology specialist in outpatient setting -12/20: renal function improving with IVF; lisinopril discontinued given compromised renal function, start hydralazine/isosorbide; strict I&O # Anemia -likely blood loss anemia, follow retic ct, transfuse as needed # Hyponatremia -resolved with IV NS # Hx colon cancer s/p colectomy done long time back # Colostomy status # Generalized weakness # Chronic systolic heart failure, LVEF 75-80% # HTN -lisinopril discontinued, start hydralazine/isosorbide DVT/VTE prophylaxis: SCDs Code Status: Full Code Date of Service: December 20, 2024 Billing Provider: NIKO WARE Common Visit Codes: [id number] INP/OBS CARE(HIGH) NIKO WARE December 20, 2024 15:54
[2024-12-20] MEDS ORDERED: propofol inj 20 ML IV ONE (15:55)
[2024-12-20] MEDS ORDERED: LIDOcaine 2% (20mg/ml) 5ml vial ONE (15:55)
--- NOTE | 2024-12-20 16:22 | OPERATIVE REPORT ---
Operative Report Providers to ~ Date of Procedure: December 20, 2024 Pre-Operative Diagnosis: GROSS HEMATURIA;ARF Post-Operative Diagnosis Radiation cystitis, gross hematuria. Procedure Performed One. Cystoscopy. Two. Clot evacuation. Three. Fulguration of bleeding. Surgeon: Modesto Trevino MD Wallpaper Inspector None. 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 Complications None. Estimated Blood Loss: None. Specimen Removed: Clots for discard only. Description of Procedure: The patient was under the effects of general anesthesia and in dorsal lithotomy with his genitals prepped and draped in sterile fashion. The urethra was entered with a 26 [place] continuous flow resectoscope and we appreciated mild lateral lobe enlargement. Starting at the prostate we could appreciate some radiation changes which extended through the trigone and mild manner. Immediately posterior to the trigone and extending toward the posterior wall and dome was extensive radiation cystitis. This radiation cystitis also extended out laterally from the posterior wall toward the lateral patricia bilaterally. Systematically we fulgurated bleeding keily of blood vessels and dilated varices until complete hemostasis was observed. We then removed our scope and placed a 18 [place] coude catheter into the bladder with 10 mL instilled into the retaining balloon. Crystal clear drainage was appreciated. Counts repoted as correct: Yes MODESTO TREVINO MD December 20, 2024 16:22
[2024-12-20] MEDS: acetaminophen 1,000mg/100ml IV 100 ML IV PRN (17:36)
[2024-12-21] VITALS (7 sets, daily range): BP systolic 90–123; BP diastolic 44–68; PULSE 75–111; RESP 15–18; TEMP 97.6–98.2; O2SAT 97–100
[2024-12-21 05:05] LABS: ABSOLUTE RETICS # 34200 /CUMM (23000-93000); BASOPHILS % (AUTO) 0.2 % (0-1); EOSINOPHILS % (AUTO) 0 % (0-6); HEMATOCRIT 22.4 % (42.0-52.0); HEMOGLOBIN 7.4 g/dl (14.0-17.9); LYMPHOCYTES # (AUTO) 0.6 X10'3 (1.1-4.8); LYMPHOCYTES % (AUTO) 7.5 % (21-51); MEAN CORPUSCULAR HEMOGLOBIN 33.1 PG (27.0-31.0); MEAN CORPUSCULAR VOLUME 100.5 FL (78-98); MEAN PLATELET VOLUME 8.8 FL (7.4-10.4); MONOCYTES # (AUTO) 0.1 X10'3 (0-0.9); MONOCYTES % (AUTO) 1.4 % (2-12); NEUTROPHILS # (AUTO) 6.7 X10'3 (1.8-7.7); NEUTROPHILS % (AUTO) 90.9 % (42-75); PLATELET COUNT 146 X10'3 (140-440); RED BLOOD COUNT 2.23 X10'6 (4.70-6.10); RETICULOCYTE % (AUTO) 1.5 % (0.5-1.5); WHITE BLOOD COUNT 7.4 X10'3 (4.5-11.0)
[2024-12-21 05:10] LABS: ALANINE AMINOTRANSFERASE 16 U/L (12-78); ALBUMIN 2.5 G/DL (3.4-5.0); ALKALINE PHOSPHATASE 51 IU/L (46-116); ANION GAP 7 (8-16); ASPARTATE AMINO TRANSFERASE 11 U/L (10-37); BILIRUBIN,TOTAL 0.1 MG/DL (0.1-1.0); BLOOD UREA NITROGEN 43 MG/DL (7-18); BUN/CREATININE RATIO 16.8 (10.0-20.0); CALCIUM 8.6 MG/DL (8.5-10.1); CHLORIDE 109 MMOL/L (99-107); CREATININE 2.56 MG/DL (0.60-1.10); GLUCOSE 187 MG/DL (70-104); POTASSIUM 5.7 MMOL/L (3.5-5.1); SODIUM 136 MMOL/L (135-145); TOTAL PROTEIN 5.1 G/DL (6.4-8.2); eCRCL 23 ML/MIN; eGFR 24 ML/MIN
[2024-12-21] MEDS ORDERED: calcium chloride 100 MG/1 ML inj IV ONE (07:00)
[2024-12-21] MEDS: insulin regular, human 10 units/0.1 ml syringe IV ONE (07:00)
[2024-12-21 07:17] LABS: FREE T4 (FREE THYROXINE) 0.93 NG/DL (0.73-1.40)
[2024-12-21] MEDS: folic acid 1mg tablet PO SCH (07:34)
[2024-12-21] MEDS: hyDRALAzine 10mg tablet PO SCH (07:35)
[2024-12-21] MEDS: isosorbide mononitrate 30mg tab.SR.24H PO SCH (07:37)
[2024-12-21] MEDS: cyanocobalamin 500mcg tablet PO SCH (07:43)
[2024-12-21] MEDS: famotidine 20mg tablet PO SCH (08:00)
[2024-12-21] MEDS: dextrose 50%-water 50ml dispensing syringe IV ONE (09:16)
[2024-12-21] MEDS: CALCIUM GLUC 1gm/50ml NACL,iso 50 ML IV STA (09:18)
[2024-12-21] MEDS: EPOETIN ALFA-EPBX 20,000 UNIT/ML 1 ML MDV SQ ONE (09:23)
[2024-12-21 09:48] LABS: FERRITIN 141 NG/ML (26-388)
[2024-12-21 10:20] LABS: % IRON SATURATION 17 % (11-46); IRON 29 UG/DL (53-167); TOTAL IRON BINDING CAPACITY 173 UG/DL (259-388)
[2024-12-21 10:29] LABS: COLOR,URINE RED (Yellow)
[2024-12-21 10:32] LABS: CLARITY,URINE BLOODY (Clear); UA COLLECTION TYPE FOLEY CATH
[2024-12-21 10:33] LABS: RBC,URINE TNTC /HPF (0-2)
[2024-12-21 10:35] LABS: BACTERIA,URINE NONE SEEN /HPF (Neg); MUCUS STRANDS FEW /LPF (Neg); SQUAMOUS EPITHELIAL CELL,UR NONE SEEN /LPF (FEW)
--- NOTE | 2024-12-21 11:20 | PROGRESS NOTE ---
Progress Note Dictate Providers to CC Referring Physician: Hospitalist Reason for Consultation: HÉCTOR Chief Complaint: Hematuria and hydronephrosis History of Present Illness: he is an 84-year-old man who most recently had an episode of urinary retention and a Parra catheter was placed, he was discharged home from the ED, presented back to the emergency room with worsening hematuria progressing over several days to rafael blood, he came in anemic, little urine in his Parra bag, was found to have hydronephrosis and hematuria had cystoscopy with stent placements, he has good urine volume now that does not appear to be hematuric on gross visualization, he reports doing well. . Review of Systems: Constitutional: Denies fever, chills, weight loss, does report fatigue. HEENT (Head, Ears, Eyes, Nose, Throat): Denies headaches, ear pain, vision changes, or nasal congestion. Cardiovascular: Denies chest pain, palpitations, reports shortness of breath with exertion. Respiratory: Denies cough, or wheezing. Gastrointestinal: Denies abdominal pain, nausea, vomiting, or diarrhea. Genitourinary: Denies painful urination or changes in urinary frequency, see HPI Musculoskeletal: Denies joint pain or stiffness. Neurological: Denies numbness, weakness, or dizziness. Psychiatric: Denies anxiety or depression. Integumentary: Denies rash or skin lesions. Hematologic: Denies easy bruising or bleeding. Endocrine: Denies excessive thirst or urination. Progress Note: Consult Request: Hospitalist Antibiotic Ordered?: Yes Objective Vitals Vital Signs Date Time Temp Pulse Resp B/P (MAP) Pulse Ox O2 Delivery O2 Flow Rate FiO2 12/21/24 10:00 98.1 104 15 90/51 (64) 97 Room Air 12/20/24 17:40 0.0 General: Well appearing, NAD, appears comfortable Neck: No JVD, or bruits CV: RRR w/o murmur, pulses 2+ symmetrical, no edema Pulm: CTA Bilateral no wheezes Abd: + BS, NT Musc: Ambulates eithout assistance, strength 4/5 in alll major muscle groups Lab Results: 12/21/24 0431 12/21/24 1244 Coagulation Studies Laboratory Tests Test 12/16/24 17:09 Prothrombin Time 10.3 SECONDS (9.0-12.0) INR International Normalized Ratio 1.0 INR Activated Partial Thromboplast Time 27 SECONDS (22-32) Coagulation Comments Problem\Assessment\Plan Problems/Diagnosis: (1) Acute kidney injury superimposed on CKD Assessment & Plan: Obstructive uropathy, baseline creatinine is unknown to me at this time, but would expect considerable improvement in his creatinine with stent placement and replacement of Parra catheter, good urine flow at this time, will monitor his creatinine daily, even though he has significant CKD I would expect some polyuria after correction of his obstruction, please match IV fluids with his urinary output as close as possible, encourage p.o. fluid intake as well (2) Urine retention Assessment & Plan: Placement of stents, good urine flow and catheter functioning well, I would expect his creatinine to improve some, monitor for polyuria (3) Hematuria Assessment & Plan: Anemia secondary to acute blood loss from Parra catheter, hemoglobin 7.2 today, would recommend iron studies, if iron deficient recommend IV iron, and give 1 dose of erythropoietin 10,000 units SQ reticulocyte count could be useful TOY SUGGS III DO December 21, 2024 11:20
--- NOTE | 2024-12-21 14:57 | PROGRESS NOTE ---
Daily Progress Note Providers to CC ~ Antibiotic Timeout Antibiotic Ordered?: Yes If Yes, Indications: UTI Subjective No acute events overnight. Patient examined at bedside. No new complaints, not in acute distress. Patient denies chest pain, sob, palpitations, abdominal pain, n/v/d. s/p cystoscopy, clot evacuation, fulguration of bleeding of blood vessels and dilated varices on 12/20. Postop findings notable for extensive radiation cystitis starting at the bladder base behind the trigone and extending toward the dome and out toward the bilateral lateral patricia. Labs notable for iron deficiency, stable H/H, retic ct 1.5. Started iron infusion; TSH/T4 wnl, pending B12, folate. Hyperkalemia secondary to CKD, corrected with insulin/dextrose, Veltassa. Consulted financial reporting specialist Dr. Patton. Objective Vital Signs Date Time Temp Pulse Resp B/P (MAP) Pulse Ox O2 Delivery O2 Flow Rate FiO2 12/21/24 10:00 98.1 104 15 90/51 (64) 97 Room Air 12/20/24 17:40 0.0 Result Diagram: 12/21/24 0431 12/21/24 1244 Physical Exam General: Generalized weakness, A&Ox3, NAD HEENT: Normocephalic, PERRLA Neck: Supple, trachea midline, no JVD Chest: Clear to auscultation bilaterally Cardiovascular: RRR, S1&S2 GI: Soft and nontender Extremities: No cyanosis/clubbing/or edema CHAR PULLER: No focal deficits Musculoskeletal: No paraspinal muscle tenderness, no muscle spasm Skin: Warm and intact Coagulation Studies Laboratory Tests Test 12/16/24 17:09 Prothrombin Time 10.3 SECONDS (9.0-12.0) INR International Normalized Ratio 1.0 INR Activated Partial Thromboplast Time 27 SECONDS (22-32) Coagulation Comments Problem\Assessment\Plan This is an 84 year old male , with history of multiple medical problems including chronic kidney disease, colon cancer treated with surgery, colostomy status now, CHF ejection fraction unknown, bilateral hydronephrosis moderate, anemia hemoglobin 10.9, acute renal failure, Parra catheter malfunction, presented today to emergency department chief complaint gross hematuria associated with Parra catheter malfunction; in addition patient presents to the ED with a complaint of bloody urine. # Mild right hydronephrosis # UTI, E.coli # Chronic indwelling status # Urinary retention, chronic -gross hematuria; case discussed with urologist Dr. Hinton who recommended to start the patient on antibiotics and CBI -12/20: OR today for cystoscopy, clot evacuation, and fulguration of bleeding -s/p cystoscopy, clot evacuation, fulguration of bleeding of blood vessels and dilated varices until hemostasis achieved on 12/20. Postop findings notable for extensive radiation cystitis # Prerenal HÉCTOR on CKD, unknown stage # Hyperkalemia 2/2 CKD -patient follows with Dr. Anderson who is patient's regular Nephrology specialist in outpatient setting -12/20: renal function improving with IVF; lisinopril discontinued given compromised renal function, start hydralazine/isosorbide; strict I&O -12/21: consulted financial reporting specialist Dr. Patton, recommended iron infusion, epoietin sq; match fluid I&O; Hyperkalemia secondary to CKD, corrected with insulin/dextrose, Veltassa # Anemia, macrocytic -likely blood loss anemia, follow retic ct, transfuse as needed -12/21: retic ct 1.5, iron deficiency, started iron infusion; TSH/T4 wnl, pending B12, folate # Hyponatremia -resolved with IV NS # Hx colon cancer s/p colectomy done long time back # Colostomy status # Generalized weakness # Chronic systolic heart failure, LVEF 75-80% # HTN -lisinopril discontinued, start hydralazine/isosorbide DVT/VTE prophylaxis: SCDs Code Status: Full Code Date of Service: December 21, 2024 Billing Provider: NIKO WARE Common Visit Codes: [id number] INP/OBS CARE(HIGH) NIKO WARE December 21, 2024 14:57
[2024-12-21] MEDS: iron dextran complex inj. 25 MG in normal saline 100ml IV soln 100 ML IV ONE (15:45)
[2024-12-21] MEDS: PATIROMER CALCIUM SORBITEX 8.4 GM POWD.PACK PO ONE (16:23)
[2024-12-21] MEDS: iron dextran complex inj. 75 MG in normal saline 100ml IV soln 100 ML IV ONE (16:29)
[2024-12-22] VITALS (11 sets, daily range): BP systolic 103–171; BP diastolic 43–86; PULSE 70–104; RESP 14–18; TEMP 97.9–99.8; O2SAT 97–98
[2024-12-22 07:22] LABS: BASOPHILS % (AUTO) 0.3 % (0-1); EOSINOPHILS # (AUTO) 0.1 X10'3 (0-0.9); EOSINOPHILS % (AUTO) 0.8 % (0-6); LYMPHOCYTES # (AUTO) 0.6 X10'3 (1.1-4.8); MEAN CORPUSCULAR HEMOGLOBIN 33.6 PG (27.0-31.0); MEAN CORPUSCULAR HGB CONC 33.6 g/dL (33.0-36.5); MEAN CORPUSCULAR VOLUME 100.2 FL (78-98); MONOCYTES # (AUTO) 0.5 X10'3 (0-0.9); NEUTROPHILS # (AUTO) 7.9 X10'3 (1.8-7.7); NEUTROPHILS % (AUTO) 86.9 % (42-75); PLATELET COUNT 125 X10'3 (140-440); RED BLOOD COUNT 1.84 X10'6 (4.70-6.10); RED CELL DISTRIBUTION WIDTH 14.9 % (11.5-14.5); WHITE BLOOD COUNT 9.1 X10'3 (4.5-11.0)
[2024-12-22 07:29] LABS: HEMATOCRIT 18.4 % (42.0-52.0); HEMOGLOBIN 6.2 g/dl (14.0-17.9)
[2024-12-22] MEDS: PATIROMER CALCIUM SORBITEX 8.4 GM POWD.PACK PO SCH (08:00)
[2024-12-22 08:05] LABS: ALANINE AMINOTRANSFERASE 13 U/L (12-78); ALBUMIN 2.3 G/DL (3.4-5.0); ALKALINE PHOSPHATASE 43 IU/L (46-116); ANION GAP 11 (8-16); ASPARTATE AMINO TRANSFERASE 16 U/L (10-37); BILIRUBIN,TOTAL 0.1 MG/DL (0.1-1.0); BLOOD UREA NITROGEN 48 MG/DL (7-18); BUN/CREATININE RATIO 18.4 (10.0-20.0); CALCIUM 8.1 MG/DL (8.5-10.1); CHLORIDE 108 MMOL/L (99-107); CREATININE 2.61 MG/DL (0.60-1.10); GLUCOSE 124 MG/DL (70-104); POTASSIUM 4.7 MMOL/L (3.5-5.1); SODIUM 135 MMOL/L (135-145); TOTAL CARBON DIOXIDE 16.5 MMOL/L (24-32); TOTAL PROTEIN 4.6 G/DL (6.4-8.2); eCRCL 23 ML/MIN; eGFR 24 ML/MIN
[2024-12-22 08:21] LABS: RED BLOOD COUNT 1.84 X10'6 (4.70-6.10); RETICULOCYTE % (AUTO) 2.4 % (0.5-1.5)
[2024-12-22] MEDS: iron dextran complex inj. 100 MG in normal saline 100ml IV soln 100 ML IV SCH (09:10)
--- NOTE | 2024-12-22 11:36 | PROGRESS NOTE ---
Daily Progress Note Providers to CC ~ Antibiotic Timeout Antibiotic Ordered?: Yes Subjective No acute events overnight. Patient examined at bedside. No new complaints, not in acute distress. Patient denies chest pain, sob, palpitations, abdominal pain, n/v/d. s/p cystoscopy, clot evacuation, fulguration of bleeding of blood vessels and dilated varices on 12/20. Postop findings notable for extensive radiation cystitis starting at the bladder base behind the trigone and extending toward the dome and out toward the bilateral lateral patricia. Vss, labs notable for retic ct 2.4, Hgb 6.2, received 2 units PRBC today. Positive fluid balance 2800ml, Cr slightly uptrended. Objective Vital Signs Date Time Temp Pulse Resp B/P (MAP) Pulse Ox O2 Delivery O2 Flow Rate FiO2 12/22/24 10:30 98.1 77 16 117/60 12/22/24 04:58 Room Air 12/22/24 02:00 0.0 12/21/24 22:00 99 Result Diagram: 12/22/2418 12/22/24 0618 Physical Exam General: Generalized weakness, A&Ox3, NAD HEENT: Normocephalic, PERRLA Neck: Supple, trachea midline, no JVD Chest: Clear to auscultation bilaterally Cardiovascular: RRR, S1&S2 GI: Soft and nontender Extremities: No cyanosis/clubbing/or edema PLANT SUPERVISOR: No focal deficits Musculoskeletal: No paraspinal muscle tenderness, no muscle spasm Skin: Warm and intact Coagulation Studies Laboratory Tests Test 12/16/24 17:09 Prothrombin Time 10.3 SECONDS (9.0-12.0) INR International Normalized Ratio 1.0 INR Activated Partial Thromboplast Time 27 SECONDS (22-32) Coagulation Comments Problem\Assessment\Plan This is an 84 year old male , with history of multiple medical problems including chronic kidney disease, colon cancer treated with surgery, colostomy status now, CHF ejection fraction unknown, bilateral hydronephrosis moderate, anemia hemoglobin 10.9, acute renal failure, Parra catheter malfunction, presented today to emergency department chief complaint gross hematuria associated with Parra catheter malfunction; in addition patient presents to the ED with a complaint of bloody urine. # Mild right hydronephrosis # UTI, E.coli # Chronic indwelling status # Urinary retention, chronic -gross hematuria; case discussed with urologist Dr. Hinton who recommended to start the patient on antibiotics and CBI -12/20: OR today for cystoscopy, clot evacuation, and fulguration of bleeding -s/p cystoscopy, clot evacuation, fulguration of bleeding of blood vessels and dilated varices until hemostasis achieved on 12/20. Postop findings notable for extensive radiation cystitis # Prerenal HÉCTOR on CKD, unknown stage # Hyperkalemia 2/2 CKD -patient follows with Dr. Anderson who is patient's regular Nephrology specialist in outpatient setting -12/20: renal function improving with IVF; lisinopril discontinued given compromised renal function, start hydralazine/isosorbide; strict I&O -12/21: consulted product designer Dr. Patton, recommended iron infusion, epoietin sq; match fluid I&O; Hyperkalemia secondary to CKD, corrected with insulin/dextrose, Veltassa -12/22: K normalized; Positive fluid balance 2800ml, Cr slightly uptrended. IVF discontinued # Anemia, blood loss -likely blood loss anemia, follow retic ct, transfuse as needed -12/21: retic ct 1.5, iron deficiency, started iron infusion; TSH/T4 wnl, pending B12, folate -12/22: retic ct 2.4, Hgb 6.2, 2 units PRBC ordered # Hyponatremia -resolved with IV NS # Hx colon cancer s/p colectomy done long time back # Colostomy status # Generalized weakness # Chronic systolic heart failure, LVEF 75-80% # HTN -lisinopril discontinued, start hydralazine/isosorbide DVT/VTE prophylaxis: SCDs Code Status: Full Code Date of Service: December 22, 2024 Billing Provider: NIKO WARE Common Visit Codes: [id number] INP/OBS CARE(HIGH) NIKO WARE December 22, 2024 11:36
--- NOTE | 2024-12-22 12:35 | PROGRESS NOTE ---
Progress Note Dictate Providers to CC ~ Antibiotic Ordered?: Yes Subjective Subjective Resting company in bed today, he has no specific complaints, eating and drinking well, nurses report no new events since last evaluation, good urine output although creatinine is slightly worse today but not significant but I am concerned, I like to additional urine output which would typically see with obstructive uropathy Objective Vitals Vital Signs Date Time Temp Pulse Resp B/P (MAP) Pulse Ox O2 Delivery O2 Flow Rate FiO2 12/22/24 12:26 98.7 83 16 131/71 12/22/24 04:58 Room Air 12/22/24 02:00 0.0 12/21/24 22:00 99 General: Well appearing, well nourished, in no distress. Oriented x 3, Neck: Supple, without JVD Heart: Regular rate and rhythm, no murmur Lungs: Clear to auscultation and percussion Abdomen: Bowel sounds normal, no tenderness, organomegaly, masses, or hernia Extremities: No cyanosis, no edema, peripheral pulses intact Neurologic: Sensation to touch, normal. DTRs normal moves all extremities spontaneously. Lab Results: 12/22/24 0618 12/22/24 0618 Coagulation Studies Laboratory Tests Test 12/16/24 17:09 Prothrombin Time 10.3 SECONDS (9.0-12.0) INR International Normalized Ratio 1.0 INR Activated Partial Thromboplast Time 27 SECONDS (22-32) Coagulation Comments Other Results I & O 12/22/24 07:00 Intake Total 4450 ml Output Total 2350 ml Balance 2100 ml Intake Oral 4300 ml IV Total 150 ml Output Urine Total 2350 ml Problem\Assessment\Plan Problems/Diagnosis: (1) Acute kidney injury superimposed on CKD Assessment & Plan: Obstructive uropathy, baseline creatinine is unknown to me at this time, but would expect considerable improvement in his creatinine with stent placement and replacement of Parra catheter, good urine flow at this time, will monitor his creatinine daily, even though he has significant CKD I would expect some continued polyuria after correction of his obstruction, please match IV fluids with his urinary output as close as possible to prvent new HÉCTOR, encourage p.o. fluid intake as well (2) Urine retention Assessment & Plan: Placement of stents, good urine flow and catheter functioning well, I would expect his creatinine to improve some, monitor for polyuria, and ensure IVF matches urine output, and also that he has good oral intake of fluids (3) Hematuria Assessment & Plan: Anemia secondary to acute blood loss from Parra catheter, hemoglobin 6.2 today, would recommend iron studies, IV iron, and 1 dose of erythropoietin 10,000 units SQ yesterday, reticulocyte count could still be usefull, 2 units PRBC, would recommend we look again for any site of bleeding TOY SUGGS III DO December 22, 2024 12:35
[2024-12-22 13:36] LABS: FOLATE SERUM(FOLIC) 12.4 ng/mL (>3.0)
[2024-12-22] MEDS: HYDROcodone/acetaminophen 5mg/325mg tablet PO PRN (13:58)
[2024-12-22] MEDS: SODIUM ZIRCONIUM CYCLOSILICATE 10 GM POWD.PACK PO ONE (13:58)
[2024-12-22 15:30] LABS: BILIRUBIN,URINE NEGATIVE (Neg); CLARITY,URINE SLIGHTLY CLOUDY (Clear); GLUCOSE, URINE 250 mg/dl (Neg); KETONES,URINE NEGATIVE (Neg); LEUKOCYTE ESTERASE ,URINE SMALL (Neg); NITRITES, URINE NEGATIVE (Neg); OCCULT BLOOD,URINE LARGE (Neg); PH,URINE 5.5 (4.8-8.0); PROTEIN,URINE 100 mg/dl (Neg); UROBILINOGEN,URINE 0.2 E.U/dL (0.2-1.0)
[2024-12-22 15:40] LABS: COLOR,URINE PINK (Yellow); UA COLLECTION TYPE FOLEY CATH
[2024-12-22 15:48] LABS: WBC,URINE 30-50 /HPF (0-4)
[2024-12-22 15:50] LABS: BACTERIA,URINE FEW /HPF (Neg); MUCUS STRANDS NONE SEEN /LPF (Neg); RBC,URINE 20-50 /HPF (0-2); SQUAMOUS EPITHELIAL CELL,UR NONE SEEN /LPF (FEW)
[2024-12-22 15:51] LABS: WBC CLUMPS,URINE FEW /HPF (NEGATIVE)
[2024-12-22 19:31] LABS: HEMATOCRIT 26.6 % (42.0-52.0); HEMOGLOBIN 9.2 g/dl (14.0-17.9); MEAN CORPUSCULAR HEMOGLOBIN 32.7 PG (27.0-31.0); MEAN CORPUSCULAR HGB CONC 34.5 g/dL (33.0-36.5); MEAN CORPUSCULAR VOLUME 94.6 FL (78-98); MEAN PLATELET VOLUME 8.4 FL (7.4-10.4); PLATELET COUNT 132 X10'3 (140-440); RED BLOOD COUNT 2.81 X10'6 (4.70-6.10); RED CELL DISTRIBUTION WIDTH 16.6 % (11.5-14.5); WHITE BLOOD COUNT 12.3 X10'3 (4.5-11.0)
[2024-12-23] MEDS: mag hydrox/Alum hydrox/simeth 30ml oral suspension PO PRN (03:20)
[2024-12-23 06:00] VITALS: BP 170/84; PULSE 114; RESP 17; TEMP 98.7; O2SAT 97
[2024-12-23] MEDS ORDERED: metoprolol tartrate 1mg/ml inj IV ONE (06:55)
[2024-12-23 07:18] LABS: BASOPHILS % (AUTO) 0.2 % (0-1); EOSINOPHILS # (AUTO) 0.2 X10'3 (0-0.9); EOSINOPHILS % (AUTO) 1.7 % (0-6); HEMOGLOBIN 9.6 g/dl (14.0-17.9); LYMPHOCYTES # (AUTO) 0.8 X10'3 (1.1-4.8); LYMPHOCYTES % (AUTO) 5.8 % (21-51); MEAN CORPUSCULAR HEMOGLOBIN 32.8 PG (27.0-31.0); MEAN CORPUSCULAR HGB CONC 34.2 g/dL (33.0-36.5); MEAN CORPUSCULAR VOLUME 96.1 FL (78-98); MEAN PLATELET VOLUME 8.7 FL (7.4-10.4); MONOCYTES # (AUTO) 0.7 X10'3 (0-0.9); MONOCYTES % (AUTO) 5.3 % (2-12); NEUTROPHILS # (AUTO) 11.7 X10'3 (1.8-7.7); PLATELET COUNT 143 X10'3 (140-440); RED BLOOD COUNT 2.92 X10'6 (4.70-6.10); RED CELL DISTRIBUTION WIDTH 16.4 % (11.5-14.5); WHITE BLOOD COUNT 13.4 X10'3 (4.5-11.0)
[2024-12-23 07:26] LABS: ALANINE AMINOTRANSFERASE 16 U/L (12-78); ALBUMIN 2.4 G/DL (3.4-5.0); ALBUMIN/GLOBULIN RATIO 0.9 (1.1-1.5); ALKALINE PHOSPHATASE 67 IU/L (46-116); ANION GAP 11 (8-16); ASPARTATE AMINO TRANSFERASE 19 U/L (10-37); BILIRUBIN,TOTAL 0.3 MG/DL (0.1-1.0); BLOOD UREA NITROGEN 43 MG/DL (7-18); BUN/CREATININE RATIO 17.6 (10.0-20.0); CALCIUM 8.5 MG/DL (8.5-10.1); CHLORIDE 109 MMOL/L (99-107); CREATININE 2.44 MG/DL (0.60-1.10); GLUCOSE 121 MG/DL (70-104); POTASSIUM 4.6 MMOL/L (3.5-5.1); SODIUM 138 MMOL/L (135-145); TOTAL CARBON DIOXIDE 18.2 MMOL/L (24-32); TOTAL PROTEIN 5.2 G/DL (6.4-8.2); eCRCL 24 ML/MIN; eGFR 26 ML/MIN
[2024-12-23 07:30] VITALS: RESP 17; O2SAT 97
[2024-12-23] MEDS: ringers solution, lacted 1,000 ML IV SCH (08:25)
--- NOTE | 2024-12-23 09:01 | PROGRESS NOTE ---
Progress Note Dictate Providers to CC ~ Antibiotic Ordered?: Yes Subjective Subjective Doing well overnight, good UOP polyuria nearly 7 liters, some mild abdominal pain, no fevers, no change in colostomy stool volume or texture Objective Vitals Vital Signs Date Time Temp Pulse Resp B/P (MAP) Pulse Ox O2 Delivery O2 Flow Rate FiO2 12/23/24 06:00 98.7 114 17 170/84 (112) 97 Room Air 12/22/24 02:00 0.0 Appears well, alert, oriented X 3 RRR w/o murmur, no JVD CTAn bilateral, no wheezes + BS, NT, no masses Lab Results: 12/23/24 0621 12/23/24 0621 Coagulation Studies Laboratory Tests Test 12/16/24 17:09 Prothrombin Time 10.3 SECONDS (9.0-12.0) INR International Normalized Ratio 1.0 INR Activated Partial Thromboplast Time 27 SECONDS (22-32) Coagulation Comments Problem\Assessment\Plan Problems/Diagnosis: (1) Acute kidney injury superimposed on CKD Assessment & Plan: Obstructive uropathy, baseline creatinine is unknown to me at this time, but would expect considerable improvement in his creatinine with stent placement and replacement of Parra catheter, good urine flow at this time, will monitor his creatinine daily, even though he has significant CKD I would expect some continued polyuria ( 7liters overnight) after correction of his obstruction, please match IV fluids with his urinary output as close as possible to prvent new HÉCTOR, encourage p.o. fluid intake as well I restarted LR 150 mL/hr for 1 liter today, again if we get to negative with polyuria, we cdan expect another HÉCTOR post obstruction. Creatinine improved today, 2.61 yesterday, 2.44 today, I would expect some improvement, he is close to his baseline function of CKD 3b now, if he improves tomorrow, consider discharge home with urology and nephrology follow-up within 2 weeks with labs. (2) Urine retention (3) Hematuria Assessment & Plan: Anemia secondary to acute blood loss from Parra catheter, hemoglobin 6.2 yesterday, 9.2 today, iron studies iron deficient, IV iron, and 1 dose of erythropoietin 10,000 units SQ given, reticulocyte count could still be usefull, 2 units PRBC yesterday, if it continues to decreasse acutely, would recommend we look again for any site of bleeding TOY SUGGS III DO December 23, 2024 09:01
[2024-12-23 10:00] VITALS: BP 153/81; PULSE 113; RESP 15; TEMP 99.6; O2SAT 97
--- NOTE | 2024-12-23 10:18 | PROGRESS NOTE ---
Daily Progress Note Providers to CC ~ Antibiotic Timeout Antibiotic Ordered?: Yes Subjective No acute events overnight. Patient examined at bedside. No new complaints, not in acute distress. Patient denies chest pain, sob, palpitations, n/v/d. Reports abdominal pain/ right flank pain gallstones in CT on 12/16, US abdomen today shows cholelithiasis without evidence of cholecystitis. Low-grade fever, abdominal/flank pain, tachycardic in 110s likely febrile non-hemolytic reaction given onset of symptoms after blood transfusion, continued on supportive care. s/p cystoscopy, clot evacuation, fulguration of bleeding of blood vessels and dilated varices on 12/20. Postop findings notable for extensive radiation cystitis starting at the bladder base behind the trigone and extending toward the dome and out toward the bilateral lateral patricia. Labs notable for stable Hgb at 9.6 after 2 units PRBC yesterday. Negative fluid balance 3800ml, Cr downtrended. Urine culture resulted positive for E.coli, continued on ceftriaxone per sensitivities. Blood culture resulted negative. 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 Objective Vital Signs Date Time Temp Pulse Resp B/P (MAP) Pulse Ox O2 Delivery O2 Flow Rate FiO2 12/23/24 06:00 98.7 114 17 170/84 (112) 97 Room Air 12/22/24 02:00 0.0 Result Diagram: 12/23/24 0621 12/23/24 0621 Physical Exam General: Generalized weakness, A&Ox3, NAD HEENT: Normocephalic, PERRLA Neck: Supple, trachea midline, no JVD Chest: Clear to auscultation bilaterally Cardiovascular: RRR, S1&S2 GI: Tender RUQ with palpation; negative rebound tenderness Extremities: No cyanosis/clubbing/or edema VENDING MACHINE REPAIRER: No focal deficits Musculoskeletal: No paraspinal muscle tenderness, no muscle spasm Skin: Warm and intact Coagulation Studies Laboratory Tests Test 12/16/24 17:09 Prothrombin Time 10.3 SECONDS (9.0-12.0) INR International Normalized Ratio 1.0 INR Activated Partial Thromboplast Time 27 SECONDS (22-32) Coagulation Comments Problem\Assessment\Plan This is an 84 year old male , with history of multiple medical problems including chronic kidney disease, colon cancer treated with surgery, colostomy status now, CHF ejection fraction unknown, bilateral hydronephrosis moderate, anemia hemoglobin 10.9, acute renal failure, Parra catheter malfunction, presented today to emergency department chief complaint gross hematuria associated with Parra catheter malfunction; in addition patient presents to the ED with a complaint of bloody urine. # Mild right hydronephrosis # UTI, E.coli # Chronic indwelling status # Urinary retention, chronic -gross hematuria; case discussed with urologist Dr. Hinton who recommended to start the patient on antibiotics and CBI -12/20: OR today for cystoscopy, clot evacuation, and fulguration of bleeding -s/p cystoscopy, clot evacuation, fulguration of bleeding of blood vessels and dilated varices until hemostasis achieved on 12/20. Postop findings notable for extensive radiation cystitis -12/23: urine culture resulted positive for E.coli, continued on ceftriaxone # Prerenal HÉCTOR on CKD, unknown stage # Hyperkalemia 2/2 CKD -patient follows with Dr. Anderson who is patient's regular Nephrology specialist in outpatient setting -12/20: renal function improving with IVF; lisinopril discontinued given compromised renal function, start hydralazine/isosorbide; strict I&O -12/21: consulted plumbing mechanic Dr. Patton, recommended iron infusion, epoietin sq; match fluid I&O; Hyperkalemia secondary to CKD, corrected with insulin/dextrose, Veltassa -12/22: K normalized; Positive fluid balance 2800ml, Cr slightly uptrended. IVF discontinued # Anemia, blood loss # Febrile non-hemolytic reaction -likely blood loss anemia, follow retic ct, transfuse as needed -12/21: retic ct 1.5, iron deficiency, started iron infusion; TSH/T4 wnl, pending B12, folate -12/22: retic ct 2.4, Hgb 6.2, 2 units PRBC ordered -12/23: Hgb 9.6; Low-grade fever, abdominal/flank pain, tachycardic in 110s likely febrile non-hemolytic reaction given onset of symptoms after blood transfusion, continued on supportive care. T.bili normal, no thrombocytopenia, follow LDH, haptoglobin. 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 LFT normal -abd/flank pain likely transfusion reaction; follow HIDA # Hyponatremia -resolved with IV NS # Hx colon cancer s/p colectomy done long time back # Colostomy status # Generalized weakness # Chronic systolic heart failure, LVEF 75-80% # HTN -lisinopril discontinued, start hydralazine/isosorbide DVT/VTE prophylaxis: SCDs Code Status: Full Code Date of Service: December 23, 2024 Billing Provider: NIKO WARE Common Visit Codes: [id number] INP/OBS CARE(HIGH) NIKO WARE December 23, 2024 10:18
[2024-12-23] MEDS: metoprolol tartrate 50mg tablet PO SCH (10:31)
[2024-12-23] MEDS: EPOETIN ALFA-EPBX 20,000 UNIT/ML 1 ML MDV SQ SCH (11:40)
[2024-12-23 14:00] VITALS: BP 153/81; PULSE 114; RESP 18; TEMP 98.7; O2SAT 96
--- NOTE | 2024-12-23 14:04 | RADIOLOGY REPORT ---
INDICATION: abd pain, RUQ, gallstones in CT TECHNIQUE: Multiple real-time sonographic images of the right upper quadrant of the abdomen were obt ained. COMPARISON: CT 12/16/2024 FINDINGS: Liver is homogenous in echogenicity. The liver measures 15.9 cm. No intrahepatic biliary ductal dilatation is noted. The gallbladder wall measures 0.3 cm and is unremarkable. Gallstones are noted. No pericholecysti c fluid or edema. Sonographic Gaytan's sign is negative. The common duct measures 0.4 cm and is unremarkable. The right kidney measures 11.7 cm. No hydronephrosis. The pancreas is not well visualized due to obscuration from bowel gas. The visualized portions of the IVC and aorta are grossly unremarkable. IMPRESSION: 1. Cholelithiasis without evidence of acute cholecystitis.
--- NOTE | 2024-12-23 14:30 | RADIOLOGY REPORT ---
CHEST RADIOGRAPH Indication: sepsis Technique: Single frontal view of the chest was obtained Comparison: None FINDINGS: Lines and Tubes: None Lungs: No focal consolidation. Pleura: No effusion. No pneumothorax. Cardiomediastinal contours: Unremarkable Bones: No acute osseous abnormality. IMPRESSION: No acute cardiopulmonary disease.
[2024-12-23] MEDS ORDERED: sincalide inj 2 MCG in normal saline 100ml IV soln 100 ML IV ONE (15:20)
[2024-12-23] MEDS ORDERED: oxybutynin 5mg tablet PO SCH (15:25)
[2024-12-23] MEDS: hyDRALAzine 10mg tablet PO SCH (15:44)
[2024-12-23 18:00] VITALS: BP 98/52; PULSE 96; RESP 15; TEMP 98.6; O2SAT 96
[2024-12-23 22:00] VITALS: BP 96/59; PULSE 80; RESP 16; TEMP 98.3; O2SAT 97
[2024-12-24 06:00] VITALS: BP 121/67; PULSE 70; RESP 16; TEMP 99; O2SAT 95
[2024-12-24 07:05] LABS: BASOPHILS % (AUTO) 0.1 % (0-1); EOSINOPHILS # (AUTO) 0.2 X10'3 (0-0.9); EOSINOPHILS % (AUTO) 1.9 % (0-6); HEMATOCRIT 24.3 % (42.0-52.0); HEMOGLOBIN 8.1 g/dl (14.0-17.9); LYMPHOCYTES # (AUTO) 0.7 X10'3 (1.1-4.8); LYMPHOCYTES % (AUTO) 6.2 % (21-51); MEAN CORPUSCULAR HEMOGLOBIN 32.4 PG (27.0-31.0); MEAN CORPUSCULAR HGB CONC 33.3 g/dL (33.0-36.5); MEAN CORPUSCULAR VOLUME 97.3 FL (78-98); MEAN PLATELET VOLUME 9.1 FL (7.4-10.4); MONOCYTES # (AUTO) 0.7 X10'3 (0-0.9); MONOCYTES % (AUTO) 5.8 % (2-12); NEUTROPHILS # (AUTO) 9.9 X10'3 (1.8-7.7); PLATELET COUNT 132 X10'3 (140-440); RED CELL DISTRIBUTION WIDTH 16.6 % (11.5-14.5); WHITE BLOOD COUNT 11.5 X10'3 (4.5-11.0)
[2024-12-24 07:46] VITALS: BP 135/91; PULSE 91
[2024-12-24 07:50] LABS: ALANINE AMINOTRANSFERASE 11 U/L (12-78); ALBUMIN 1.9 G/DL (3.4-5.0); ALBUMIN/GLOBULIN RATIO 0.7 (1.1-1.5); ALKALINE PHOSPHATASE 57 IU/L (46-116); ANION GAP 10 (8-16); ASPARTATE AMINO TRANSFERASE 14 U/L (10-37); BILIRUBIN,TOTAL 0.3 MG/DL (0.1-1.0); BLOOD UREA NITROGEN 38 MG/DL (7-18); BUN/CREATININE RATIO 17.1 (10.0-20.0); CALCIUM 8.5 MG/DL (8.5-10.1); CHLORIDE 111 MMOL/L (99-107); CREATININE 2.22 MG/DL (0.60-1.10); GLUCOSE 93 MG/DL (70-104); LACTATE DEHYDROGENASE 125 U/L (85-227); LIPASE 33 U/L (16-77); POTASSIUM 4.2 MMOL/L (3.5-5.1); SODIUM 140 MMOL/L (135-145); TOTAL PROTEIN 4.7 G/DL (6.4-8.2); eCRCL 26 ML/MIN; eGFR 29 ML/MIN
[2024-12-24] MEDS: famotidine 20mg tablet PO SCH (08:00)
[2024-12-24 10:00] VITALS: BP 116/81; PULSE 98; RESP 18; TEMP 98.4; O2SAT 14
[2024-12-24] MEDS ORDERED: ISOS30TA84 PO (11:13)
[2024-12-24] MEDS ORDERED: hyDRALAzine tablet PO (11:13)
[2024-12-24] MEDS ORDERED: CEFD300C3 PO (11:13)
[2024-12-24] MEDS ORDERED: FER325T PO (11:13)
--- NOTE | 2024-12-24 19:23 | DISCHARGE SUMMARY ---
Discharge Summary Providers to CC ~ Discharge Summary Admission Diagnosis: HÉCTOR on CKD, hematuria, radiation cystitis, UTI Hospital Course DATE OF ADMISSION: 12/16/24 DATE OF DISCHARGE: 12/24/24 Discharge Diagnosis\Comment: Radiation cystitis- POA s/p cystoscopy, clot evacuation, fulguration of bleeding of vessels and dilated varices (12/20/24) Hematuria 2/2 above Mild right hydronephrosis UTI, E.coli Chronic indwelling status Urinary retention, chronic Prerenal HÉCTOR superimposed on CKD Hyperkalemia 2/2 CKD Anemia, blood loss Febrile non-hemolytic reaction 2nd degree type I AVB- POA Cholelithiasis Hyponatremia Hx colon cancer s/p colectomy done long time back Colostomy status Generalized weakness Chronic diastolic heart failure, LVEF 75-80% HTN Class II obesity Generalized weakness Operations\Procedures: None Consultants: Urologist Modesto Devine Electronic Technician Adolfo Vincent Complications: None Condition on DC: Stable New Medications: Cefdinir (Cefdinir) 300 Mg Capsule 1 CAP PO Q12H for 10 Days, #20 CAP 0 Refills Ferrous Sulfate (Ferrous Sulfate) 325 Mg (65 Mg Iron) Tablet 325 MG PO DAILY for 30 Days, #30 TAB [hyDRALAzine tablet] () 10 MG TABLET 10 MG PO Q12H for 30 Days, #60 Isosorbide Mononitrate (Isosorbide Mononitrate Er) 30 Mg Tab.er.24h 30 MG PO DAILY for 30 Days, #30 TAB.SR Continued Medications: Atorvastatin Calcium (Atorvastatin Calcium) 40 Mg Tablet 1 TAB PO DAILY Dapagliflozin Propanediol (Farxiga) 10 Mg Tablet 1 TAB PO DAILY Diltiazem HCl (Matzim LA) 240 Mg Tab.er.24h 1 TAB PO DAILY Diltiazem HCl (Diltiazem 24Hr ER) 120 Mg Cap.er.24h 1 CAP PO DAILY Famotidine (Famotidine) 20 Mg Tablet 1 TAB PO DAILY Lisinopril* (Lisinopril*) 40 Mg Tablet 1 TAB PO DAILY Tamsulosin Hcl* (Flomax*) 0.4 Mg Cap.sr.24h Discharge Summary: Chace Roberson is a 84-year-old male with past medical history of CKD, colon cancer s/p colectomy and colostomy, diastolic heart failure, 2 week indwelling urinary catheter status who presented to the ED with chief complaint of gross hematuria, malfunction of indwelling urinary catheter, and associated symptoms of generalized weakness x 3 days. Patient had indwelling catheter placed approximately two weeks ago due to urinary retention. Initial diagnostic findings were notable for abnormal urinalysis, gross hematuria, hematuria evidence in CT abdomen/pelvis, abnormal renal function, normocytic anemia. Pertinent negative findings were negative guaiac, normal lactic acid, no hypoxia, no fever, negative chest x-ray, CT abdomen/pelvis negative for nephrol ithiasis or hydronephrosis. Patient was started on intravenous fluids and empirical antibiotics on admission. Case was consulted with urologist Modesto Devine and patient subsequently underwent cystoscopy, clot evacuation, fulguration of bleeding of vessels and dilated varices until complete hemostasis was achieved, on 12/20/24 without complication. Post-op findings were notable for extensive radiation cystitis starting at the bladder base behind the trigone and extending toward the dome and out toward the bilateral lateral patricia. Post-procedure, patient developed anemia secondary to blood loss and hyperkalemia in which he was treated with 2 units of PRBC and insulin for. Patient developed febrile non-hemolytic reactions including low- grade fever and mild abdominal discomfort shortly after completion of PRBC transfusion but resolved spontaneously without needs of supportive treatment. Urine culture resulted positive for E. coli with sensitivities to ceftriaxone for which patient was treated with since admission. Due to profound acute kidney injury on chronic renal insufficiency and subsequent hyperkalemia, case was consulted with crotch piece baster Adolfo Vincent with recommendation for iron infusion and epoetin given anemia on CKD. Patient did not experience further complications throughout the entire hospital stay and remained clinically and hemodynamically stable. Patient was seen and examined on the day of discharge. On day of discharge, vss and labs notable for stable h/h and resolving acute kidney injury. All labs, diagnostic workups, discharge plan discussed with patient in details during visit before discharge. All questions and concerns answered to the best of my professional knowledge. Patient is cleared for discharge from nephrology standpoint by Dr. Patton. Patient is to be discharged with and to follow-up with PCP, urologist Dr. Hinton, and crotch piece baster Dr. Patton within 2 weeks. Physical Exam General: Generalized weakness, A&Ox3, NAD HEENT: Normocephalic, PERRLA Neck: Supple, trachea midline, no JVD Chest: Clear to auscultation bilaterally Cardiovascular: RRR, S1&S2 GI: Soft and nontender Extremities: No cyanosis/clubbing/or edema NETWORK PRICING CONSULTANT: No focal deficits Musculoskeletal: No paraspinal muscle tenderness, no muscle spasm Skin: Warm and intact *Problems/Diagnosis: (1) Acute kidney injury superimposed on CKD (2) Urine retention Status: Acute (3) Hematuria Status: Acute Total Time Spent on D/C: > 30 Minutes Date of Service: December 24, 2024 Billing Provider: NIKO WARE Common Visit Codes: [id number] DISCH DAY >30min NIKO WARE December 24, 2024 19:23
[2024-12-25] MEDS ORDERED: ferrous sulfate 325mg tablet PO SCH (08:00)
== END 2024-12-24 14:33 | disposition home health service (06) | DRG 668 ==
LOC: ER 12:53 → ED HOLD 18:24 → EDBEDREQ 21:48 → ORTHO 4S 22:45
PROVIDERS: ADMIT Family Medicine; ATTEND Family Medicine
PROC: 0TCB8ZZ Extirpation of Matter from Bladder, Via Natural or Artificial Opening Endoscopic (ICD-10-PCS; 2024-12-20)
PROC: 0T5B8ZZ Destruction of Bladder, Via Natural or Artificial Opening Endoscopic (ICD-10-PCS; principal; 2024-12-20 15:26)
PROC: 30233N1 Transfusion of Nonautologous Red Blood Cells into Peripheral Vein, Percutaneous Approach (ICD-10-PCS; 2024-12-22)
DX: N30.41 Irradiation cystitis with hematuria (principal); N17.0 Acute kidney failure with tubular necrosis; D62 Acute posthemorrhagic anemia; E87.1 Hypo-osmolality and hyponatremia; N13.30 Unspecified hydronephrosis; N18.4 Chronic kidney disease, stage 4 (severe); I50.32 Chronic diastolic (congestive) heart failure; I13.0 Hypertensive heart and chronic kidney disease with heart failure and stage 1 through stage 4 chronic kidney disease, or unspecified chronic kidney disease; T83.018A Breakdown (mechanical) of other urinary catheter, initial encounter; E87.5 Hyperkalemia; F31.9 Bipolar disorder, unspecified; K80.20 Calculus of gallbladder without cholecystitis without obstruction; B96.20 Unspecified Escherichia coli [E. coli] as the cause of diseases classified elsewhere; Y83.8 Other surgical procedures as the cause of abnormal reaction of the patient, or of later complication, without mention of misadventure at the time of the procedure; D53.9 Nutritional anemia, unspecified; Y84.2 Radiological procedure and radiotherapy as the cause of abnormal reaction of the patient, or of later complication, without mention of misadventure at the time of the procedure; I44.1 Atrioventricular block, second degree; E66.812 Obesity, class 2; Z79.899 Other long term (current) drug therapy; Z80.8 Family history of malignant neoplasm of other organs or systems; Z85.038 Personal history of other malignant neoplasm of large intestine; Z90.49 Acquired absence of other specified parts of digestive tract; Z93.3 Colostomy status; Y92.89 Other specified places as the place of occurrence of the external cause; Z68.31 Body mass index [BMI] 31.0-31.9, adult
CPT/HCPCS: 36415; 36430; 71045; 74176; 76700; 80048; 80053; 80061; 81001; 82272; 82570; 82607; 82728; 82746; 82948; 83010; 83036; 83540; 83550; 83605; 83615; 83690; 83735; 83880; 83930; 83935; 84100; 84132; 84133; 84145; 84156; 84300; 84439; 84443; 84484; 84540; 85025; 85027; 85045; 85610; 85730; 86078; 86885; 86900; 86901; 86920; 87040; 87077; 87081; 87088; 87186; 93005; 93306; 97116; 97161; 97162; 97530; 99285; A4314; A4346; A4355; A4421; A4618; A5200; A6213; G0378; J0131; J0610; J0696; J1100; J1750; J1815; J2003; J2250; J2405; J2704; J3010; J3490; J7030; J7040; J7120; P9016; Q4081

== ENCOUNTER 2025-01-02 16:23 | Emergency (ER) | payer MEDICARE, OTHER ==
[~2025-01-02 16:23] MED LIST: ATOR40TA72 PO; CEFD300C3 PO; DAPA10TA PO; DILT-35 PO; DILT240T10 PO; FAMO20TA8 PO; FER325T PO; ISOS30TA84 PO; LISI40TA13 PO; TAMS-55; hyDRALAzine tablet PO
[2025-01-02 21:30] VITALS: BP 189/82; PULSE 93; RESP 20; O2SAT 98
--- NOTE | 2025-01-02 21:46 | Physician Documentation ---
History of Present Illness ~ Chief Complaint: Leg Pain Stated Complaint: POSSIBLE BLOOD CLOT IN LEG Time Seen by MD: 20:59 HPI This is a 84-year-old male who presents with left lower extremity pain and swelling, patient reports pain and swelling is worse in his left inner calf and thigh. Patient reports he was seen by his primary care provider earlier in the day and directed the emergency department due to concerns for DVT. Patient reports no shortness of breath, chest pain, or fever. Tetanus witin 5 years: Yes Medication Reconciliation Allergies: Coded Allergies: No Known Allergies (Unverified , 01/02/25) Scheduled Atorvastatin Calcium (Atorvastatin Calcium), 1 TAB PO DAILY, (Reported) Cefdinir (Cefdinir), 1 CAP PO Q12H Dapagliflozin Propanediol (Farxiga), 1 TAB PO DAILY, (Reported) Diltiazem HCl (Matzim LA), 1 TAB PO DAILY, (Reported) Diltiazem HCl (Diltiazem 24Hr ER), 1 CAP PO DAILY, (Reported) Famotidine (Famotidine), 1 TAB PO DAILY, (Reported) Ferrous Sulfate (Ferrous Sulfate), 325 MG PO DAILY Isosorbide Mononitrate (Isosorbide Mononitrate Er), 30 MG PO DAILY Lisinopril* (Lisinopril*), 1 TAB PO DAILY, (Reported) [hyDRALAzine tablet], 10 MG PO Q12H Miscellaneous Medications Tamsulosin Hcl* (Flomax*), (Reported) Past Medical History Patient History: FH: skin cancer Review of Systems ROS Left leg pain and swelling as stated above in the HPI, otherwise all systems are reviewed and negative. Physical Exam Vital Signs: Heart Rate: 93, Respiratory Rate: 20, BP: 189/82, Pulse Oximetry: 98 Oxygen Flow Rate: 4.0 Physical Exam VITALS: Reviewed and as above. GENERAL: Alert, nontoxic appearing, no apparent distress. RESPIRATORY: No increased work of breathing, no respiratory distress, speaking in full clear sentences, clear lung sounds in all wallace CV: Regular rate and rhythm no murmur EXTREMITIES:Tenderness to left medial calf and thigh, no ecchymosis, no erythema, no generalized lower extremity edema Progress Results/Orders Results/Orders Orders - ANN WYNN Vl Venous (01/02/25 20:20) Completed Orders - ANN WYNNP Vl Venous (01/02/25 20:20) Vital Signs 01/02/25 01/02/25 01/02/25 16:27 19:56 21:30 Pulse 84 93 Resp 15 20 B/P (MAP) 189/82 (117) Pulse Ox 99 98 O2 Flow Rate 4.0 EKG/XRAY/CT/US/VASC/MRI Vascular : Impression Left lower extremity venous duplex Clinical History: edema Comparison: None Findings: Duplex Doppler evaluation of the deep venous system of the left lower extremity from the common femoral vein to the popliteal vein including color Doppler and spectral/pulsed waveform analysis was performed. The bilateral common femoral vein demonstrates appropriate compressibility and waveform variability. Superficial thrombus in the left greater saphenous vein and varicose vein in the area in the medial/distal thigh. The femoral vein demonstrates appropriate compressibility and waveform variability. The deep femoral vein demonstrates appropriate compressibility and waveform variability. The popliteal vein demonstrates appropriate compressibility and waveform variability. There is normal compressibility at the tibioperoneal trunk. Impression: Superficial thrombus in the left greater saphenous vein and varicose vein in the area in the medial/distal thigh. No DVT If clinical concern/symptoms persist or worsen, short-interval follow-up study is suggested. Dictated by:MARKUS OBREGON MD Dictation date and time:01/03/25640 Electronically Signed by: MARKUS OBREGON MD Date and Time: 01/03/25640 Transcribed: [facility] Medical Decision Making Findings This 84-year-old male presented with pain and swelling to the medial aspect of his left calf and thigh, physical exam did demonstrate pain tenderness to the medial aspect left thigh and calf without swelling to the entire lower extremity, a vascular ultrasound the area was obtained to evaluate for DVT, annmarie disla report from computer service technician indicated no DVT however there were several superficial venous thrombus and because veins which are likely the cause of patient's pain and swelling. Remainder of physical exam was benign and vital signs stable. Patient is appropriate for outpatient follow up. With shared decision-making patient would not wait for the formal report from radiologist for his vascular study and would like to go home immediately, initial report from planning technician did not demonstrate DVT and it was reassuring patient did not report chest pain or shortness of breath, therefore I have low suspicion for pulmonary embolism. Patient provided home care instructions for superficial venous thrombus. Plan was to call patient to return to ED if final vascular report demonstrates DVT. Final vascular study did not demonstrate DVT. General Diff Dx:Considerations: Include: Laceration, Neurovascular injury, Sprain, Other (DVT, PE, cellulitis, abscess, CHF) Departure Disposition: HOME / SELF CARE / HOMELESS Impression: Primary Impression: Acute superficial venous thrombosis of left lower extremity Condition: Improved Discharge Instructions: Varicose Veins Additional Instructions: The ultrasound did not show a deep vein clot, though the ultrasound did show some superficial venous clots and varicose veins. May use warm compresses on the affected area to help your body absorbed these clots, otherwise follow up with your primary care provider tomorrow for further management. Please return to the emergency department for any new or worsening concerning symptoms. Referrals: NO PRIMARY CARE PROVIDER (PCP) Education Educated: Patient Educated regarding: diagnosis, treatment, prognosis, need for follow up Signature Scribe Signature: No scribe Attestation: The note accurately reflects work and decisions made by me.CAYLA Whaley 01/03/25 03:37 ANN WYNN January 02, 2025 21:46
--- NOTE | 2025-01-03 06:43 | VASCULAR REPORT ---
Left lower extremity venous duplex Clinical History: edema Comparison: None Findings: Duplex Doppler evaluation of the deep venous system of the left lower extremity from the common femor al vein to the popliteal vein including color Doppler and spectral/pulsed waveform analysis was perfo rmed. The bilateral common femoral vein demonstrates appropriate compressibility and waveform variability. Superficial thrombus in the left greater saphenous vein and varicose vein in the area in the medial/ distal thigh. The femoral vein demonstrates appropriate compressibility and waveform variability. The deep femoral vein demonstrates appropriate compressibility and waveform variability. The popliteal vein demonstrates appropriate compressibility and waveform variability. There is normal compressibility at the tibioperoneal trunk. Impression: Superficial thrombus in the left greater saphenous vein and varicose vein in the area in the medial/ distal thigh. No DVT If clinical concern/symptoms persist or worsen, short-interval follow-up study is suggested.
== END 2025-01-02 21:54 | disposition home or self-care (01) ==
LOC: ER 16:24
DX: I82.812 Embolism and thrombosis of superficial veins of left lower extremity (principal)
CPT/HCPCS: 93971; 99284